=== PATIENT | male | born 1965 | race African-American/Black ===

== ENCOUNTER 2022-12-09 10:55 | Inpatient (IN) | payer OTHER ==
--- OUTSIDE RECORDS SUMMARY | 2022-12-09 10:59 | XMS REPORT | Continuity of Care Document ---
:1965 Author Organization [facility] t Address [address] [facility]. [address] [place] [address] Care Team Providers Name Role Phone Castro Deluna MD Primary Care Physician [phone] Castro Deluna MD Attending Clinician ALISTAIR NOLASCO Attending Clinician Unavailable Payers Payer Name Policy Type Policy Number Effective Date Expiration Date S ource Problems Condition Condition Condition Status Onset Resolution Last Treating Co mments Source Name Details Category Date Date Treatment Clinician Date Hypertensi Hypertensi Disease Active [facility] Hyperlipid Hyperlipid Disease Active [facility] Coronary Coronary Disease Active Meth[facility] di artery artery st disease disease Hospita involving involving l [place] coronary coronary artery of artery of [place] heart heart without without angina angina pectoris pectoris Cigar Cigar Disease Active [facility] sm[facility] sm[facility] Allergies, Adverse Reactions, Alerts This patient has no known allergies or adverse reactions. Social History Social Habit Start Date Stop Date Quantity Comments Source Gender identity [facility] History of tobacco Smokes tobacco [facility] daily [facility] Alcohol intake 2022-10-30 2022-10-30 Current drinker [facility] 00:00:00 00:00:00 of alcohol Hospital (finding) History of Social 2022-10-30 2022-10-[address] function 00:00:00 00:00:00 Hospital Tobacco Comment 2022-10-30 2022-10-30 2-3 cigars day [facility] 00:00:00 00:00:00 Hospital Tobacco use and 2022-10-30 2022-10-30 Smokeless [facility] exposure 00:00:00 00:00:00 tobacco non-user Hospital Sex Assigned At [birth year] [facility] 00:[facility]:00 [facility]:00 [facility] Smoking Status Start Date Stop Date Source Smokes tobacco daily 2022-10-30 00:00:00 [facility] Medications Ordered Filled Start Stop Current Ordering Indication Dosage Frequency Signature Comments Components Source Medication Medication Date Date Medication? Clinician (SIG) Name Name atorvastati Yes [id number] 40mg QD Take 1 [facility] (LIPITOR) 5-15 tablet (40 st 40 mg 00:00: mg total) Hospita tablet 00 by mouth l daily. metoprolol 2023- Yes [id number] 25mg QD Take 1 [facility] succinate 5-15 05-15 tablet (25 st XL 00:00: 04:59 mg total) Hospita (TOPROL-XL) 00 :00 by mouth l 25 mg 24 hr daily. tablet benzonatate 2022- Yes [id number] 200mg Q.[id number] Take 1 [facility] (TESSALON) 5-15 06-[id number] 200 MG 00:00: 04:59 3D (200 mg Hospita capsule 00 :00 total) by l mouth 3 (three) times a day as needed for cough for up to 30 days. fluticasone Yes [id number] 1{puff} Q.5D Inhale 1 [facility] propion-frederic -[address] meteroL 00:00: (two) Hospita (ADVAIR/ 00 times a l WIXELA day. INHUB) 250-50 mcg/dose DISKUS benzonatate 2022- No [id number] 200mg Q.[id number] Take 1 [facility] (TESSALON) 4-25 05-[id number] 200 MG 00:00: 00:00 3D (200 mg Hospita capsule 00 :00 total) by l mouth 3 (three) times a day as needed for cough for up to 30 days. methylPREDN 2022- No [id number] follow [facility] ISolone 10-[address] (Medrol, 00:00: 04:59 directions Ho angelic Bennett,) 4 mg 00 :00 l tablet albuterol Yes 2{puff} Q4H Inhale 2 M ethodi (PROAIR 4-[address] HFA) 90 00:00: every 4 Hospita mcg/actuati 00 (four) l on inhaler hours as needed. gabapentin Yes [id number] 300mg Q.5D Take 1 [facility] (NEURONTIN) 8-[address] 300 mg 00:00: (300 mg Hospita capsule 00 total) by l mouth 2 (two) times a day. atorvastati 2022- No [id number] 40mg QD Take 1 [facility] (LIPITOR) 10-06 tablet (40 s t 40 mg 00:00: 00:00 mg total) Hospit a tablet 00 :00 by mouth l daily. Immunizations Ordered Immunization Filled Immunization Date Status Commen ts Source Name Name FLUCELVAX QUAD PF 2020-05-[address] 00:00:00 Hospital Vital Signs Vital Name Observation Time Observation Value Comments Source Systolic blood 2022-10-30 19:40:00 164 mm[Hg] [facility] pressure Diastolic blood 2022-10-30 19:40:00 88 mm[Hg] [facility] pressure Heart rate 2022-10-30 19:40:00 73 /min [facility] Respiratory rate 2022-10-30 19:40:00 18 /min [facility] Body height 2022-10-30 19:40:00 165.1 cm [facility] Body weight 2022-10-30 19:40:00 59.784 kg [facility] BMI 2022-10-30 19:40:00 21.93 kg/m2 [facility] Oxygen saturation in 2022-10-30 19:40:00 99 /min [facility] Arterial blood by Pulse oximetry Procedures This patient has no known procedures. Plan of Care Planned Activity Planned Date Details Comments Source Future Scheduled 2022-11-23 COVID-19 VACCINE (#1) [facility] Test 15:50:42 [code = COVID-19 VACCINE (#1)] Future Scheduled 2022-11-23 Pneumococcal Vaccine: [facility] Test 15:50:42 Pediatrics (0 to 5 Years) and At-Risk Patients (6 to 64 Years) (1 - PCV) [code = Pneumococcal Vaccine: Pediatrics (0 to 5 Years) and At-Risk Patients (6 to 64 Years) (1 - PCV)] Future Scheduled 2022-11-23 Hepatitis C screening [facility] Test 15:50:42 (procedure) [code = 363669790] Future Scheduled 2022-11-23 COLONOSCOPY SCREENING [facility] Test 15:50:42 [code = COLONOSCOPY SCREENING] Future Scheduled 2022-11-23 SHINGLES VACCINES (1 Met [facility] Test 15:50:42 of 2) [code = SHINGLES VACCINES (1 of 2)] Future Scheduled 2022-11-23 INFLUENZA VACCINE Method [facility] Test 15:50:42 [code = INFLUENZA VACCINE] Encounters Start End Encounter Admission Attending Care Care Encounter Source Date/Time Date/Time Type Type Clinicians Facility Department ID 2022-11-19 2022-11-19 Orders Regi, 1.2.840.1 [id number] [facility] 00:00:00 00:00:00 Only Castro Galeana50.1.[address] 3.430.2.7 Hospit a .3.536114 l .8 2022-11-17 2022-11-17 Refill Regi, 1.2.840.1 [id number] [facility] 00:00:00 00:00:[address] 3.430.2.7 Hospit a .3.418549 l .8 2022-10-30 2022-10-30 Office Regi, 1.2.840.1 [id number] [facility] 14:30:00 15:08:08 Visit Castro Galeana50.1.[address] 3.430.2.7 Hospit a .3.077442 l .8 2022-10-30 2022-10-30 Outpatient REGI, [facility] [id number] [place] 00:00:00 00:00:00 CASTRO [address] [facility] 2021-02-21 2021-02-21 Outpatient REGICAPE [facility] [id number] [place] 00:00:00 00:00:00 ACSTRO [address] 2020-10-06 2020-10-06 Outpatient DELUNA, [facility] [id number] [place] 00:00:00 00:00:00 CASTRO [address] 2020-06-29 2020-06-29 Outpatient DOMINY, [facility] [id number] [place] 00:00:00 00:00:00 ALISTAIR [address] 2020-06-29 2020-06-29 Outpatient DELUNA, [facility] [id number] [place] 00:00:00 00:00:00 CASTRO [address] 2020-05-24 2020-05-24 Outpatient DELUNA, [facility] [id number] [place] 00:00:00 00:00:00 CASTRO [address] Results This patient has no known results.
[2022-12-09 12:02] LABS: Absolute Lymphocytes (CBC) 2.1 K/uL (0.7-4.9); Lymphocytes % 34.1 % (15.3-44.8); MCV 97.1 fL (80-100); MPV 8.8 fL (7.6-11.3); RBC Red Blood Cell Count 3.92 M/uL (4.33-5.43)
--- NOTE | 2022-12-09 12:09 | RAD REPORT ---
EXAM DESCRIPTION[facility]12/09/2022 12:02 pm CLINICAL HISTORY: COUGH COMPARISON: No comparisons TECHNIQUE: PA and lateral views of the chest. FINDINGS: The lungs are clear. No pneumothorax or effusion. The cardiomediastinal contours are unre markable. IMPRESSION: No acute cardiopulmonary process.
[2022-12-09 12:26] LABS: Troponin High Sensitivity 357.6 pg/mL (<58.9)
[2022-12-09] MEDS ORDERED: ASPIRIN 81 MG CHEWABLE TABLET ONE (12:45)
[2022-12-09] MEDS ORDERED: MORPHINE 2 MG/ML SYR IV PRN (12:51)
--- NOTE | 2022-12-09 12:52 | EDPHYS ---
Physician Documentation [facility] Name: Juancho Sanchez Age: 57 yrs Sex: Male : 1965 Arrival Date: 12/09/2022 Time: 10:55 Bed 15 Private MD: ED Physician Albert Lopez HPI: 12/09 11:28 This 57 yrs old Black Male presents to ER via Ambulatory with complaints of Breathing bs3 Difficulty. 11:28 49-year-old male history of an LA sp stent in 2017 possible hypertension/high bs3 cholesterol patient reports taking his medications but not having either of the 2 diseases presents with a cough on and off for approximately 1 month he also has loss of his voice he lost his voice a month ago and never came back he denies any fevers or chills he notes cough and congestion and feels slightly short of breath no history of asthma or COPD and no history of pulmonary embolism no leg swelling no recent travel or immobilization he does note that sometimes he coughs and he feels like it gets stuck in his throat. Historical: - Allergies: 11:02 No Known Allergies; vg1 - Home Meds: 11:02 Aspirin Oral [Active]; atorvastatin oral [Active]; vg1 - PMHx: 11:02 Hypertensive disorder; Myocardial infarction; vg1 - Immunization history:: Client reports having NOT received the Covid vaccine. - Social history:: Smoking status: Patient/guardian denies using tobacco, Stopped _ months ago 3. ROS: 11:28 Constitutional: Negative for fever, chills bs3 11:28 All other systems are negative. Exam: 11:28 Constitutional: This is a well developed, well nourished patient who is awake, alert, bs3 and in no acute distress. Head/Face: Normocephalic, atraumatic. Eyes: Pupils equal round and reactive to light, extra-ocular motions intact. Lids and lashes normal. ENT: mmm, no posterior phyarngeal erythema Neck: Trachea midline, no thyromegaly, no neck stiffness Chest/axilla: Normal chest wall appearance and motion. Nontender with no deformity. No lesions are appreciated. Cardiovascular: Regular rate and rhythm with a normal S1 and S2. symmetric pulses in upper extremities Respiratory: No tachypnea has breath sounds are have mild rhonchi bilaterally no respiratory distress Abdomen/GI: Soft, non-tender, no rebound or guarding Skin: Warm, dry with normal turgor. Normal color with no rashes, no lesions, and no evidence of cellulitis. MS/ Extremity: Pulses equal, no cyanosis. Neurovascular intact. Full, normal range of motion. Neuro: Awake and alert, GCS 15, oriented to person, place, time, and situation. Cranial nerves II-XII grossly intact. Motor strength 5/5 in all extremities. Sensory grossly intact. Psych: Awake, alert, with orientation to person, place and time. Behavior, mood, and affect are within normal limits. Vital Signs: 10:59 BP 162 / 89; Pulse 85; Resp 24; Temp 97.9; Pulse Ox 100% on R/A; Weight 62.6 kg; Height vg1 5 ft. 5 in. ; 12:40 BP 155 / 91; Pulse 87; Resp 17 S; Pulse Ox 99% on R/A; kc6 13:45 BP 148 / 88; Pulse 66; Resp 18; Pulse Ox 100% on R/A; kr3 10:59 Body Mass Index 22.97 (62.60 kg, 165.1 cm) vg1 MDM: 11:05 Patient medically screened. bs3 11:28 Differential diagnosis: Anemia Anxiety Reaction asthma, Bronchitis CHF exacerbation, bs3 Chronic Obstructive Pulmonary Disease pneumonia, reactive airway disease. Data reviewed: vital signs, nurses notes. 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 12:40 ED course: Discussed with Dr. Esposito who agreed with heparin he will see the patient bs3 will admit to the hospitalist for NSTEMI possible new heart failure. 12:50 ED course: Discussed with Dr. Killian for admission. bs3 12/09 11:27 Order name: Basic Metabolic Panel; Complete Time: 12:29 bs3 12/09 11:27 Order name: CBC with Diff; Complete Time: 12:12 bs3 12/09 11:27 Order name: NT PRO-BNP; Complete Time: 12:29 bs3 12/09 11:27 Order name: Troponin HS; Complete Time: 12:29 3 12/09 12:52 Order name: PT-INR bs3 12/09 12:52 Order name: Ptt, Activated [facility] 12/09 13:01 Order name: Troponin High Sensitivity [facility] 12/09 13:02 Order name: Troponin High Sensitivity EDMS 12/09 13:02 Order name: Troponin High Sensitivity EDMS 12/09 11:27 Order name: XRAY Chest Pa And Lat (2 Views); Complete Time: 12:12 bs3 12/09 13:02 Order name: Echo with Doppler EDMS 12/09 11:27 Order name: EKG; Complete Time: 11:28 bs3 12/09 13:02 Order name: Heart Healthy EDMS 12/09 11:27 Order name: Cardiac monitoring; Complete Time: 11:28 bs3 12/09 11:27 Order name: EKG - Nurse/Tech; Complete Time: 12:15 bs3 12/09 11:27 Order name: IV Saline Lock; Complete Time: 11:47 bs3 12/09 11:27 Order name: Labs collected and sent; Complete Time: 11:47 bs3 12/09 11:27 Order name: O2 Per Protocol; Complete Time: 11:28 bs3 12/09 11:27 Order name: O2 Sat Monitoring; Complete Time: 11:28 bs3 Administered Medications: 12:40 Drug: Aspirin PO Chewable Tablet 324 mg Route: PO; nj1 16:16 Follow up: Response: No adverse reaction kr3 13:55 Drug: Heparin ([place] Drip) - (D5W IV 500 ml, [place] [address] units) 12 units/kg/hr kr3 {Co-Signature: kc6 (Mayra Kaiser RN).} Route: IV; Rate: calculated rate; Site: right antecubital; 16:16 Follow up: IV Status: Infusion continued kr3 14:08 Drug: Heparin (LA-Bolus No thrombolytic) - HEParin IVP 60 units/kg {Co-Signature: kc6 kr3 (Mayra Kaiser RN).} Route: IVP; Site: right antecubital; 16:16 Follow up: Response: No adverse reaction kr3 Disposition Summary: 12/09/22 12:51 Hospitalization Ordered Hospitalization Status: Inpatient Admission bs3 Provider: Tian Singleton bs3 Location: Telemetry/MedSurg (Inpatient) bs3 Condition: Fair bs3 Problem: new bs3 Symptoms: are unchanged bs3 Bed/Room Type: Standard bs3 Room Assignment: 429(12/09/22 14:26) eb Diagnosis - Subsequent non-ST elevation (NSTEMI) myocardial infarction bs3 - Dyspnea, unspecified bs3 Forms: - Medication Reconciliation Form bs3 - SBAR form bs3 Signatures: Dispatcher [employer]eta Rodney Victoria, RN RN vg1 Keisha Golden RN RN kr3 Albert Lopez MD MD bs3 Billie Hassan RN RN nj1 Mayra Kaiser RN kc6 Corrections: (The following items were deleted from the chart) 12:35 11:28 49-year-old male history of an LA when he was approximately 17 possible bs3 hypertension/high cholesterol patient reports taking his medications but not having either of the 2 diseases presents with a cough on and off for approximately 1 month he also has loss of his voice he lost his voice a month ago and never came back he denies any fevers or chills he notes cough and congestion and feels slightly short of breath no history of asthma or COPD and no history of pulmonary embolism no leg swelling no recent travel or immobilization he does note that sometimes he coughs and he feels like it gets stuck in his throat. bs3 14:26 12:51 bs3 eb
--- NOTE | 2022-12-09 12:52 | ER ---
Nurse's Notes [facility] Name: Juancho Sanchez Age: 57 yrs Sex: Male : 1965 Arrival Date: 12/09/2022 Time: 10:55 Bed 15 Private MD: Diagnosis: Subsequent non-ST elevation (NSTEMI) myocardial infarction;Dyspnea, unspecified Presentation: 12/09 10:59 Chief complaint: Patient states: had pneumonia last month, states difficulty vg1 breathing/SOB with CP and cough and loss of voice. Coronavirus screen: Vaccine status: Patient reports being unvaccinated. Client denies travel out of the [place] in the last 14 days. Ebola Screen: Patient negative for fever greater than or equal to 101.5 degrees Fahrenheit, and additional compatible Ebola Virus Disease symptoms Patient denies exposure to infectious person. Patient denies travel to an Ebola-affected area in the 21 days before illness onset. Initial Sepsis Screen: Does the patient meet any 2 criteria? RR > 20 per min. Does the patient have a suspected source of infection? No. Patient's initial sepsis screen is negative. Risk Assessment: Do you want to hurt yourself or someone else? Patient reports no desire to harm self or others. Onset of symptoms was November 08, 2022. 10:59 Method Of Arrival: Ambulatory vg1 10:59 Acuity: ALINE 3 vg1 Triage Assessment: 11:02 General: Appears in no apparent distress. uncomfortable, Behavior is cooperative. Pain: vg1 Complains of pain in chest. Respiratory: Reports shortness of breath at rest on exertion cough that is Airway is patent Respiratory effort is even, labored, Respiratory pattern is tachypnea Onset: The symptoms/episode began/occurred x 1 month, the patient has moderate shortness of breath. Historical: - Allergies: 11:02 No Known Allergies; vg1 - Home Meds: 11:02 Aspirin Oral [Active]; atorvastatin oral [Active]; vg1 - PMHx: 11:02 Hypertensive disorder; Myocardial infarction; vg1 - Immunization history:: Client reports having NOT received the Covid vaccine. - Social history:: Smoking status: Patient/guardian denies using tobacco, Stopped _ months ago 3. Screenin:13 [facility] ED Fall Risk Assessment (Adult) History of falling in the last 3 months, kr3 including since admission No falls in past 3 months (0 pts) Confusion or Disorientation No (0 pts) Intoxicated or Sedated No (0 pts) Impaired Gait No (0 pts) Mobility Assist Device Used No (0 pt) Altered Elimination No (0 pt) Score/Fall Risk Level 0 - 2 = Low Risk Oriented to surroundings, Maintained a safe environment, Educated pt \T\ family on fall prevention, incl call for assistance when getting out of bed, Provided non-skid footwear. Abuse screen: Denies threats or abuse. Nutritional screening: No deficits noted. Tuberculosis screening: No symptoms or risk factors identified. Assessment: 12:40 Reassessment: Patient appears in no apparent distress at this time. Patient and/or kr3 family updated on plan of care and expected duration. Pain level reassessed. Patient is alert, oriented x 3, equal unlabored respirations, skin warm/dry/pink. see triage assessment. 14:13 Reassessment: Patient and/or family updated on plan of care and expected duration. Pain kr3 level reassessed. Patient is alert, oriented x 3, equal unlabored respirations, skin warm/dry/pink. Vital Signs: 10:59 BP 162 / 89; Pulse 85; Resp 24; Temp 97.9; Pulse Ox 100% on R/A; Weight 62.6 kg; Height vg1 5 ft. 5 in. ; 12:40 BP 155 / 91; Pulse 87; Resp 17 S; Pulse Ox 99% on R/A; kc6 13:45 BP 148 / 88; Pulse 66; Resp 18; Pulse Ox 100% on R/A; kr3 10:59 Body Mass Index 22.97 (62.60 kg, 165.1 cm) vg1 ED Course: 10:56 Patient arrived in ED. mr 11:02 Triage completed. vg1 11:02 Arm band placed on. vg1 11:05 Albert Lopez MD is Attending Physician. bs3 11:10 Bed in low position. Call light in reach. Side rails up X 1. kr3 11:34 Keisha Golden, ANIKA is Primary Nurse. kr3 11:47 Inserted saline lock: 22 gauge in right antecubital area, using aseptic technique. kr3 Blood collected. 11:47 Missed attempt(s): 20 gauge in right antecubital area. kr3 12:03 XRAY Chest Pa And Lat (2 Views) In Process Unspecified. EDMS 12:50 Tian Singleton MD is Hospitalizing Provider. bs3 13:01 Inserted saline lock: 20 gauge in left antecubital area, using aseptic technique. kr3 16:14 No provider procedures requiring assistance completed. Patient admitted, IV remains in kr3 place. Administered Medications: 12:40 Drug: Aspirin PO Chewable Tablet 324 mg Route: PO; nj1 16:16 Follow up: Response: No adverse reaction kr3 13:55 Drug: Heparin ([place] Drip) - (D5W IV 500 ml, [place] [address] units) 12 units/kg/hr kr3 {Co-Signature: claudio (Mayra Kaiser RN).} Route: IV; Rate: calculated rate; Site: right antecubital; 16:16 Follow up: IV Status: Infusion continued kr3 14:08 Drug: Heparin ([place]-Bolus No thrombolytic) - HEParin IVP 60 units/kg {Co-Signature: claudio sandoval3 (Mayra Kaiser RN).} Route: IVP; Site: right antecubital; 16:16 Follow up: Response: No adverse reaction kr3 Medication: 16:15 VIS not applicable for this client. kr3 Outcome: 12:51 Decision to Hospitalize by Provider. bs3 16:14 Admitted to Med/surg accompanied by tech, via wheelchair, room 429, with chart, Report kr3 called to ANIKA Guajardo 16:14 Condition: stable 16:14 Instructed on the need for admit. 16:16 Patient left the ED. kr3 Signatures: Dispatcher [facility] Donovan Ayla Radha Langston, RN RN vg1 Keisha Golden RN RN kr3 Mayra Kaiser, RN RN kc6 Albert Lopez MD MD bs3 Billie Hassan RN RN nj1 Mayra Kaiser RN6 Corrections: (The following items were deleted from the chart) 14:14 12:40 Reassessment: Patient appears in no apparent distress at this time. Patient kr3 and/or family updated on plan of care and expected duration. Pain level reassessed. Patient is alert, oriented x 3, equal unlabored respirations, skin warm/dry/pink. kc6
[2022-12-09] MEDS ORDERED: ENOXAPARIN 60 MG/0.6 ML SQ SCH (12:57)
[2022-12-09] MEDS: ARFORMOTEROL TARTRATE 15 MCG/2 ML VIAL.NEB NEB SCH ×2 (12:58→20:10)
--- NOTE | 2022-12-09 13:00 | P.HP ---
Certification for Inpatient Patient admitted to: Observation With expected LOS: <2 Midnights Patient will require the following post-hospital care: None Practitioner: I am a practitioner with admitting privileges, knowledge of patient current condition, hospital course, and medical plan of care. Services: Services provided to patient in accordance with Admission requirements found in Title 42 Section 412.3 of the Code of Federal Regulations Patient History Date of Service: 12/09/22 Reason for admission: SOB and cough History of Present Illness: Patient is 57 years of age he has been sick for about 2 weeks complaining of cough congestion dysphonia and worsening shortness of breath ended up here in the hospital was seen in the emergency room treated with antibiotic steroids no relief patient quit smoking about 3 weeks ago denies being a heavy smoker history of coronary artery disease Allergies No Known Allergies Allergy (Unverified 12/09/22 16:31) Home Medications: Atorvastatin Calcium [Lipitor] 40 mg PO 12/09/22 Metoprolol Succinate 25 mg PO 12/09/22 - Past Medical/Surgical History -: HTN -: CAD -: Stent 2016 - Social History Smoking Status: Former smoker Review of Systems 10-point ROS is otherwise unremarkable Physical Examination - Vital Signs Temperature: 98 F Blood Pressure: 162/89 Pulse: 85 Respirations: 24 Pulse Ox (%): 90 - Physical Exam General: Alert, In no apparent distress, Oriented x3 HEENT: Atraumatic, Normocephalic Neck: Supple Respiratory: Clear to auscultation bilaterally, Normal air movement Cardiovascular: No edema, Normal pulses, Regular rate/rhythm Capillary refill: >2 Seconds Gastrointestinal: Hypoactive Musculoskeletal: No clubbing, No swelling, No contractures - Studies Laboratory Data (last 24 hrs) 12/09/22 11:40: WBC 6.20, Hgb 12.7 L, Hct 38.0 L, Plt Count 237 12/09/22 11:40: Sodium 137, Potassium 4.0, BUN 12, Creatinine 0.98, Glucose 94 Assessment and Plan - Problems (Diagnosis) (1) Non-STEMI (non-ST elevated myocardial infarction) Current Visit: Yes Status: Acute Plan: Patient is 57 years of age has been having problems for the past 2 weeks admitted with chronic cough shortness of breath dysphonia failed outpatient therapy with antibiotics and steroid history of coronary artery disease he had a stent placed in 2017 quit smoking 3 months ago found to have elevated troponin and an abnormal EKG as a reason for admission patient will be admitted treated with IV heparin cardiology consult BNP elevated low-dose diuretics blood pressure control bronchodilators steroids chest x-ray is normal patient's white count is normal start also on Zithromax patient is dysphonic present at the bedside Discharge Plan: Home Plan to discharge in: 24 Hours - Advance Directives Does patient have a Living Will: No Does patient have a Durable POA for Healthcare: No
[2022-12-09 13:17] LABS: Protime INR 1.14
[2022-12-09] MEDS ORDERED: HEPARIN/D5W 25,000 UNIT/500 ML BAG IV ONE (13:25)
[2022-12-09] MEDS ORDERED: HEPARIN 5000 UNIT/ML 1 ML VIAL ONE (13:25)
--- NOTE | 2022-12-09 14:50 | CON ---
Date of Consultation: 12/09/2022 Reason For Consultation: Elevated troponin. History Of Present Illness: This is a 57-year-old male with history of coronary artery disease, stat us post heart attack in 2006, status post PCI, has history of hypertension, he has had that 2 weeks a go and was diagnosed with pneumonia, but he is not getting any better. His voice is not back. He de nies having any active chest pain, but he does have shortness of breath on exertion and movement. On evaluation, there was no evidence of pneumonia in the emergency room, but troponin was elevated. Th e patient was admitted for possible non-STEMI. At this moment, he does not have any active chest nawaf n. Past Medical History: Hypertension and coronary artery disease. Medications: Refer to reconciliation sheet for detailed list. Allergies: NONE. Past Surgical History: Cardiac stent placement in 2017. Family History: No premature coronary artery disease or cancer. Social History: He does not smoke currently, but he is an ex-smoker. Does not drink or use any drug s. Review of Systems: All systems reviewed and they were negative except what mentioned in HPI. Physical Examination: Vital Signs: Reviewed. Head and Neck: Pupils are equal, reactive to light. Intact eye movements. No JVD. No cervical lym phadenopathy. Neck is supple. Thyroid is not enlarged. Lungs: Clear to auscultation bilaterally. No rhonchi, wheezing, or crackles. No accessory muscle u se. Heart: Regular rate and rhythm. No extra sounds. Abdomen: Soft, nontender. Bowel sounds positive. No organomegaly. No masses or hernia. No rigidi ty or rebound. Extremities: No edema, clubbing, or cyanosis. Intact pulses. Skin: No rash. Neurologic: Alert, awake, oriented x3. No acute focal deficits appreciated. Investigations: Troponin peaked at 357, BUN 12, creatinine 0.98, and his hemoglobin is 12.7. Assessment And Recommendations: 1.Elevated troponin. No active chest pain, but he has shortness of breath on exertion that is progr essing. He is thinking that it is due to pneumonia, but there is no pneumonia on exam or chest x-ray . This definitely could be congestive heart failure related and I recommend coronary angiogram in th e interim, start him on heparin drip and baby aspirin, and plan to keep n.p.o. past midnight for laquita nary angiogram tomorrow. 2.Hypertension. Blood pressure is elevated. He was counseled that if his blood pressure is a silen t killer, then he should be treated. At this point, he can be started on lisinopril and beta-pillo if blood pressure tolerates. I will monitor the patient with you. 3.Elevated NT-proBNP, probably congestive heart failure. Obtain echo tomorrow and we will do sánchez ry angiogram as above. /PJL Voice ID: [id number] Report ID: [id number]
[2022-12-09] MEDS: FUROSEMIDE 20 MG/ 2ML VIAL IV SCH ×2 (17:00→17:18)
[2022-12-09 17:04] VITALS: BMI 22.9
[2022-12-09] MEDS: predniSONE 20 MG TAB PO SCH ×2 (17:17→19:37)
[2022-12-09] MEDS: AZITHROMYCIN 250 MG TAB PO SCH (17:30)
[2022-12-09 19:38] LABS: Protime INR 1.17
[2022-12-09] MEDS ORDERED: HEPARIN/D5W 25,000 UNIT/500 ML BAG IV SCH (20:00)
[2022-12-09] MEDS ORDERED: ONDANSETRON 4 MG/2 ML VIAL IV PRN (21:15)
[2022-12-10] MEDS: FUROSEMIDE 20 MG/ 2ML VIAL IV SCH ×2 (09:00→19:12)
[2022-12-10] MEDS: ARFORMOTEROL TARTRATE 15 MCG/2 ML VIAL.NEB NEB SCH ×2 (09:15→20:20)
[2022-12-10] MEDS: AZITHROMYCIN 250 MG TAB PO SCH (09:21)
[2022-12-10] MEDS: predniSONE 20 MG TAB PO SCH ×2 (09:21→20:35)
[2022-12-10] MEDS: ASPIRIN EC 81 MG TAB PO SCH (09:21)
--- NOTE | 2022-12-10 10:16 | EKG ---
Test Date: 2022-12-09 Test Time: 12:10:43 Boiler Reliner: DEBRA MEASUREMENT RESULTS: Intervals: Rate: 71 NC: 142 QRSD: 82 QT: 398 QTc: 432 [place]: P: 77 NC: 142 QRS: 76 T: -74 INTERPRETIVE STATEMENTS: Sinus rhythm with premature supraventricular complexes T wave abnormality, consider inferolateral ischemia Abnormal ECG No previous ECG available for comparison Electronically Signed On 12-10-22 10:13:44 CDT by Darryl Gilmore
[2022-12-10] MEDS ORDERED: NA CHLORIDE 0.9% 500 ML ONE (14:30)
[2022-12-10] MEDS ORDERED: HEPA 1000U/500MLS 2,000 UNIT/1,000 ML BAG IV ONE (14:40)
[2022-12-10] MEDS ORDERED: LIDOCAINE 1% 20 ML MDV ONE (14:40)
[2022-12-10] MEDS ORDERED: MIDAZOLAM HCL 2 MG/2 ML INJ ONE (14:41)
[2022-12-10] MEDS ORDERED: HEPARIN 10,000 UNIT/10 ML VIAL IV ONE (14:41)
[2022-12-10] MEDS ORDERED: ATROPINE SULF 1 MG/10 ML SYR IV ONE (14:41)
[2022-12-10] MEDS ORDERED: FENTANYL CITR 100 MCG/2 ML ONE (14:41)
[2022-12-10] MEDS ORDERED: TICAGRELOR 90 MG TABLET PO ONE (14:42)
[2022-12-10] MEDS ORDERED: ASPIRIN 325 MG TAB ONE (14:42)
[2022-12-10] MEDS ORDERED: CLOPIDOGREL 75 MG TABLET ONE (14:42)
--- NOTE | 2022-12-10 15:19 | P.PN ---
Subjective Date of Service: 12/10/22 Chief Complaint: SOB and cough Patient denies any complaint today. He denies any chest pain. He feels the chest pain he experienced is related to his coughing spells. He states his coughing is better. He has lost his voice. No change in his voice from yesterday. Physical Examination - Vital Signs Temperature: 97.1 F Blood Pressure: 128/72 Pulse: 72 Respirations: 17 Pulse Ox (%): 98 - Physical Exam General: Alert, In no apparent distress, Oriented x3 HEENT: Other (Dysphonic) Neck: JVD not distended Respiratory: Clear to auscultation bilaterally, Normal air movement Cardiovascular: No edema, Regular rate/rhythm, Normal S1 S2 Gastrointestinal: Normal bowel sounds, Soft and benign, Non-distended, No tenderness Musculoskeletal: No swelling, No tenderness Integumentary: No rashes, No cyanosis Neurological: Normal speech, Normal strength at 5/5 x4 extr, Cranial nerves 3-12 intact Assessment And Plan - Current Problems (Diagnosis) (1) Tracheobronchitis Current Visit: Yes Status: Acute (2) Non-STEMI (non-ST elevated myocardial infarction) Current Visit: Yes Status: Acute (3) Coronary artery disease Current Visit: Yes Status: Acute (4) Essential hypertension Current Visit: Yes Status: Acute - Plan Patient with clear chest x-ray but elevated BNP. Congestive heart failure is not ruled out especially given elevated troponin/NST CY. Continue Zithromax, bronchodilator-Brovana. Oral prednisone. Follow sputum culture. Cardiology input appreciated. Patient scheduled for cardiac cath today. Echocardiogram ordered to evaluate systolic/diastolic function. Continue IV Lasix. Blood pressure stable. Hold metoprolol for now.
[2022-12-10] MEDS ORDERED: REGADENOSON 0.4 MG/5 ML SYR IV ONE ×2 (16:48→17:08)
[2022-12-10] MEDS ORDERED: HEPA 1000U/500MLS 1,000 UNIT/500 ML BAG IV ONE (17:03)
[2022-12-11 03:58] LABS: Absolute Lymphocytes (CBC) 1.3 K/uL (0.7-4.9); Hematocrit 36.1 % (39.6-49.0); Lymphocytes % 13.7 % (15.3-44.8); MCV 96.7 fL (80-100); MPV 9.3 fL (7.6-11.3); RBC Red Blood Cell Count 3.74 M/uL (4.33-5.43)
[2022-12-11 04:20] LABS: Magnesium 2.1 mg/dL (1.6-2.4); Potassium 4.1 mEq/L (3.5-5.1)
--- NOTE | 2022-12-11 07:20 | P.PN ---
Date of Service: 12/11/22 Subjective: feeling better Breathing is much better today; not nearly as much dyspnea on minor exertion in room cough improved, +afebrile voice slightly improved ROS: 10 point ROS as noted above, otherwise negative Physical Exam: GEN: Alert, oriented, hoarse/weakl voice HEENT: Normal conjunctiva, sclera anicteric CV: Regular rate and rhythm, no edema Pulm: Nonlabored respirations on room air, mild wheeze ABD: Soft, nontender, nondistended Integumentary: No rashes Neuro: normal affect, no focal deficit vitals reviewed Problem List: Tracheobronchitis Non-STEMI Coronary artery disease Hypertension Patient with clear chest x-ray but elevated BNP. Congestive heart failure is not ruled out especially given elevated troponin/NSTEMI. cath on 12/10 - no intervention warranted. Cardiology consulted echo to be done 12/11 symptoms/ CASTORENA, cough improving on diuretics and copd treatment Continue Zithromax, bronchodilator-Brovana; prednisone Follow sputum culture. Continue IV Lasix. Blood pressure stable. Hold metoprolol for now. VTE: hold heparin Code: Full Dispo: Home, ~24 hours
[2022-12-11] MEDS: predniSONE 20 MG TAB PO SCH ×2 (08:07→21:21)
[2022-12-11] MEDS: FUROSEMIDE 20 MG/ 2ML VIAL IV SCH ×2 (08:07→16:46)
[2022-12-11] MEDS: AZITHROMYCIN 250 MG TAB PO SCH (08:07)
[2022-12-11] MEDS: ASPIRIN EC 81 MG TAB PO SCH (08:07)
[2022-12-11] MEDS: ARFORMOTEROL TARTRATE 15 MCG/2 ML VIAL.NEB NEB SCH ×2 (08:15→20:05)
[2022-12-11 12:08] VITALS: O2SAT 99
--- NOTE | 2022-12-12 07:32 | ECHO ---
HEIGHT: 5 ft 5 in WEIGHT: 138 lb 0 oz DATE OF STUDY: 12/11/[address]: Tian Singleton MD 2-DIMENSIONAL: YES M.MODE: YES DOPPLER: YES COLOR FLOW: YES TDS: PORTABLE: YES DEFINITY: BUBBLE STUDY: DIAGNOSIS: NON ST ELEVATION MYOCARDIAL INFARCTION CARDIAC HISTORY: CATHERIZATION: YES SURGERY: NO PROSTHETIC VALVE: NO PACEMAKER: NO MEASUREMENTS (cm) DIASTOLIC (NORMALS) SYSTOLIC (NORMALS) IVSd 1.0 (0.6-1.2) LA Diam 2.0 (1.9-4.0) LVEF 57% LVIDd 4.8 (3.5-5.7) LVIDs 3.4 (2.0-3.5) %FS 30% LVPWd 1.1 (0.6-1.2) Ao Diam 2.5 (2.0-3.7) 2 DIMENSIONAL ASSESSMENT: RIGHT ATRIUM: NORMAL LEFT ATRIUM: NORMAL RIGHT VENTRICLE: NORMAL LEFT VENTRICLE: NORMAL TRICUSPID VALVE: NORMAL MITRAL VALVE: NORMAL PULMONIC VALVE: NORMAL AORTIC VALVE: NORMAL PERICARDIAL EFFUSION: NONE AORTIC ROOT: NORMAL LEFT VENTRICULAR WALL MOTION: NORMAL DOPPLER/COLOR FLOW: MILD AORTIC REGURGITATION COMMENTS: 1. NORMAL LEFT VENTRICULAR SIZE AND FUNCTION 2. MILD AORTIC REGURGITATION 3. NO WALL MOTION ABNORMALITY TECHNOLOGIST: ROBERT VAZQUEZ
[2022-12-12] MEDS: ARFORMOTEROL TARTRATE 15 MCG/2 ML VIAL.NEB NEB SCH (08:00)
--- NOTE | 2022-12-12 08:20 | P.DS ---
Admission Date: 12/10/22 Discharge Date: 12/12/22 Reason for Admission: SOB and cough Consultations: Cardiology - Dr. Gilmore / Dr. Jj Brief History of Present Illness: Patient is 57 years of age he has been sick for about 2 weeks complaining of cough congestion dysphonia and worsening shortness of breath ended up here in the hospital was seen in the emergency room treated with antibiotic steroids no relief. patient quit smoking about 3 weeks ago denies being a heavy smoker history of coronary artery disease Hospital Course: Problem List: Tracheobronchitis Non-STEMI Coronary artery disease Hypertension Patient presented with cough, dysphonia, and worsening shortness of breath. Troponins were elevated x5. Chest xray was normal. Cardiology was consulted for NSTEMI. A heart catheterization was performed and no significant stenosis was noted, so no further intervention was deemed necessary at this time. Echocardiogram was normal (EF:57% and trace regurgitation). Patient was treated for acute COPD exacerbation/bronchitis with zithromax 500mg x3days, bronchodilators, prednisone, and had some relief of his symptoms. He did briefly receive some lasix. Patient was noted to be borderline hypertensive. Follow up with PCP and if still remaining borderline hypertensive, consider addition of lisinopearl New prescriptions: Prednisone 20mg x2 daily for 4 days Continue home medication: atorvostatin, scheduled inhaler, albuterol as needed, and metoprolol Follow up: PCP 3-5 days Cardiology within 1-2 weeks Pulmonology - Dr. Singleton within 1-2 weeks Physical Exam: GEN: Alert, oriented, hoarse/weak voice HEENT: Normal conjunctiva, sclera anicteric CV: Regular rate and rhythm, no edema Pulm: Nonlabored respirations on room air, mild wheeze ABD: Soft, nontender, nondistended Integumentary: No rashes Neuro: normal affect, no focal deficit Vital Signs/Physical Exam: Temp Pulse Resp BP Pulse Ox 97.9 F 57 18 145/71 H 96 12/12/22 04:00 12/12/22 04:00 12/12/22 04:00 12/12/22 04:00 12/12/22 04:00 Laboratory Data at Discharge: WBC 9.50 thou/uL (4.3-10.9) 12/11/22 03:32 Hgb 12.3 g/dL (13.6-17.9) L 12/11/22 03:32 Hct 36.1 % (39.6-49.0) L 12/11/22 03:32 Plt Count 227 thou/uL (152-406) 12/11/22 03:32 PT 12.9 SECONDS (9.5-12.5) H 12/09/22 19:22 INR 1.17 12/09/22 19:22 APTT 27.7 SECONDS (24.3-36.9) 12/11/22 03:32 Sodium 136 mEq/L (136-145) 12/11/22 03:32 Potassium 4.1 mEq/L (3.5-5.1) 12/11/22 03:32 BUN 19 mg/dL (7-18) H 12/11/22 03:32 Creatinine 1.16 mg/dL (0.70-1.30) 12/11/22 03:32 Glucose 125 mg/dL (74-106) H 12/11/22 03:32 Magnesium 2.1 mg/dL (1.6-2.4) 12/11/22 03:32 Triglycerides 57 mg/dL (<150) 12/10/22 03:27 Cholesterol 182 mg/dL (<200) 12/10/22 03:27 HDL Cholesterol 52 mg/dL (40-60) 12/10/22 03:27 Cholesterol/HDL Ratio 3.50 12/10/22 03:27 Home Medications: Atorvastatin Calcium [Lipitor] 40 mg PO 12/09/22 Metoprolol Succinate 25 mg PO 12/09/22 predniSONE [Prednisone*] 20 mg PO BID 4 Days #8 tab 12/12/22 New Medications: predniSONE [Prednisone*] 20 mg PO BID 4 Days #8 tab Physician Discharge Instructions: Patient presented with cough, dysphonia, and worsening shortness of breath. Troponins were elevated x5. Chest xray was normal. Cardiology was consulted for NSTEMI. A heart catheterization was performed and no significant stenosis was noted, so no further intervention was deemed necessary at this time. Echocardiogram was normal (EF:57% and trace regurgitation). Patient was treated for acute COPD exacerbation/bronchitis with zithromax 500mg x3days, bronchodilators, prednisone, and had some relief of his symptoms. He did briefly receive some lasix. Patient was noted to be borderline hypertensive. Follow up with PCP and if still remaining borderline hypertensive, consider addition of lisinopearl New prescriptions: Prednisone 20mg x2 daily for 4 days Continue home medication: atorvostatin, scheduled inhaler, albuterol as needed, and metoprolol Follow up: PCP 3-5 days Cardiology within 1-2 weeks Pulmonology - Dr. Singleton within 1-2 weeks Followup: NONE,NONE [Primary Care Provider] - Time spent managing pt's care (in minutes): 45
[2022-12-12] MEDS: ASPIRIN EC 81 MG TAB PO SCH (09:14)
[2022-12-12] MEDS: FUROSEMIDE 20 MG/ 2ML VIAL IV SCH ×2 (09:14→16:09)
[2022-12-12] MEDS: AZITHROMYCIN 250 MG TAB PO SCH (09:14)
[2022-12-12] MEDS: predniSONE 20 MG TAB PO SCH (09:19)
[2022-12-12 15:55] VITALS: BP 137/70; TEMP 97.5
--- NOTE | 2022-12-19 15:50 | OP ---
Date of Procedure: 12/10/2022 Surgeon: BRIDGET GUY Procedures Performed: 1.Selective coronary angiogram. 2.Left heart catheterization. 3.FFR of mid LAD stenosis, which was not significant at 0.88. Indication For The Procedure: Non-ST elevation myocardial infarction. Access: Right femoral artery 6-Tanzanian closed with StarClose. Complications: None. Bleeding: Less than 20 mL. Description Of Procedure: After risks, benefits, alternatives were explained, the patient agreed to procedure and signed informed consent. The patient was brought into the cardiac catheterization [facility], prepped and draped in the usual sterile fashion. Then, I accessed right femoral artery using micropuncture kit, ultrasound guidance, fluoroscopy, and placed 6-Tanzanian [place] sheath, took a 6-F rench JL4 catheter into the aortic root over a J-wire, engaged left main, took standard views and the n exchanged for a 6-Tanzanian JR4 catheter and engaged the RCA, took standard views and then the cathete r was pushed over the wire into the LV, measured the LVEDP, pullback did not record any gradient and then gave systemic heparin to assure ACT level above 250 throughout the rest part of the procedure, a nd then I took a 6-Tanzanian XB left 3.5 guide into the aortic root, engaged the left main and took FFR pressure wire into the aortic root, equalized pressures and then advanced the wire into the LAD passi ng the area of the stenosis and did FFR using Lexiscan. FFR was 0.88. Then, pulled the wire back an d there was no drift. Then, final angiogram was satisfactory. Then, I removed the wire, then the ca theter and the sheath was removed, and placed StarClose for closure with good hemostasis. Findings: 1.Left main; large and normal. 2.LAD; proximal segment is normal. Mid segment 60% long lesion with negative FFR of 0.88. Then, th e diagonal 2 branch has a stent that is occluded and the rest of the LAD appears normal. 3.Left circumflex; proximal segment is normal. OM branch has mid 40% stenosis and the left circumfl ex also in the body of it supplies the inferior wall has about 40% stenosis. Left circumflex is very large and dominant. 4.RCA; very small and nondominant with mid 70% stenosis, but it is very small vessel. Conclusion: Moderate coronary artery disease with the exception of the RCA, but it is nondominant ve ssel and small. Recommendation: Medical management. SR/MODL Voice ID: [id number] Report ID: [id number]
== END 2022-12-12 17:01 | disposition home or self-care (01) | DRG 281 ==
LOC: ER 10:55 → ERHOLD 12:51 → 4TH 15:01 → OBSVTOIN 12-10 18:03
PROVIDERS: ADMIT Internal Medicine Sleep Medicine; ATTEND Hospitalist
PROC: 4A023N7 Measurement of Cardiac Sampling and Pressure, Left Heart, Percutaneous Approach (ICD-10-PCS; principal; 2022-12-10)
PROC: B2111ZZ Fluoroscopy of Multiple Coronary Arteries using Low Osmolar Contrast (ICD-10-PCS; 2022-12-10)
DX: I21.4 Non-ST elevation (NSTEMI) myocardial infarction (principal); J44.0 Chronic obstructive pulmonary disease with (acute) lower respiratory infection; J44.1 Chronic obstructive pulmonary disease with (acute) exacerbation; I25.119 Atherosclerotic heart disease of native coronary artery with unspecified angina pectoris; I25.2 Old myocardial infarction; I10 Essential (primary) hypertension; Z87.891 Personal history of nicotine dependence; I25.10 Atherosclerotic heart disease of native coronary artery without angina pectoris; Z95.5 Presence of coronary angioplasty implant and graft; J20.9 Acute bronchitis, unspecified
CPT/HCPCS: 36415; 71046; 80048; 80061; 83735; 83880; 84484; 85025; 85347; 85610; 85730; 87070; 87205; 93005; 93306; 93458; 93571; 94640; 96365; 96366; 99285; C1769; C1893; G0378; J0461; J1644; J1940; J2001; J2250; J2405; J2785; J3010; J7040; J7512; J7605; Q9967

== ENCOUNTER 2022-12-21 20:36 | Inpatient (IN) | payer OTHER ==
--- OUTSIDE RECORDS SUMMARY | 2022-12-21 20:39 | XMS REPORT | Continuity of Care Document ---
:1965 Author Organization [facility] t Address [address] [facility] [address] [place] [address] Care Team Providers Name Role Phone Castro Deluna MD Primary Care Physician [phone] Castro Deluna MD Attending Clinician ALISTAIR [...] st disease disease Hospita involving involving l [place] coronary coronary artery of artery of [place] heart heart without without angina angina pectoris pectoris Cigar Cigar Disease Active [facility] smoker smoker [facility] l Allergies, Adverse Reactions, Alerts This patient has no known allergies or adverse reactions. Social History Social Habit Start Date Stop Date Quantity Comments Source Gender identity [facility] Sexual orientation [facility] History of tobacco Cigar Smoker [facility] Alcohol intake 2022-10-30 2022-10-30 Current drinker [facility] 00:00:00 00:00:00 of alcohol Hospital (finding) History of Social 2022-10-30 2022-10-[address] function 00:00:00 00:00:00 Hospital Tobacco Comment 2022-10-30 2022-10-30 2-3 cigars day [facility] 00:00:00 00:00:00 Hospital Tobacco use and 2022-10-30 2022-10-30 Smokeless [facility] 00:00:00 00:00:00 tobacco non-user Hospital Sex Assigned At [birth year] [facility] Smoking Status Start Date Stop Date Source Smokes tobacco daily 2022-10-30 00:00:00 [facility] Medications Ordered Filled Start Stop Current Ordering Indication Dosage Frequency Signature Comments Components Source Medication Medication Date Date Medication? Clinician (SIG) Name Name atorvastati Yes [id number] 40mg QD Take 1 [facility] (LIPITOR) 5-15 tablet (40 st 40 mg 00:00: mg total) [facility]ospita tablet 00 by mouth l daily. atorvastati Yes [id number] 40mg QD Take 1 [facility] (LIPITOR) 5-15 tablet (40 st 40 mg 00:00: mg total) [facility]ospita tablet 00 by mouth l daily. metoprolol 2023- Yes [id number] 25mg QD Take 1 [facility] succinate 5-15 05-15 tablet (25 st XL 00:00: 04:59 mg total) [facility]ospita (TOPROL-XL) 00 :00 by mouth l 25 mg 24 hr daily. tablet metoprolol 2023- Yes [id number] 25mg QD Take 1 [facility] succinate 5-15 05-15 tablet (25 st XL 00:00: 04:59 mg total) [facility]ospita (TOPROL-XL) 00 :00 by mouth l 25 mg 24 hr daily. tablet benzonatate 2022- Yes [id number] 200mg Q.74387165 Take 1 [facility] (TESSALON) 5-15 06-[id number] 200 MG 00:00: 04:59 3D (200 mg [facility]ospita capsule 00 :00 total) by l mouth 3 (three) times a day as needed for cough for up to 30 days. benzonatate 2022- No [id number] 200mg Q.16894268 Take 1 [facility] (TESSALON) 5-15 06-[id number] 200 MG 00:00: 04:59 3D (200 mg [facility]ospita capsule 00 :00 total) by l mouth 3 (three) times a day as needed for cough for up to 30 days. fluticasone 2023-0 Yes [id number] 1{puff} Q.5D Inhale 1 [facility] propion-frederic 4-[address] meteroL 00:00: (two) Hospita (ADVAIR/ 00 times a l WIXELA day. INHUB) 250-50 mcg/dose DISKUS fluticasone 2023-0 Yes [id number] 1{puff} Q.5D Inhale 1 [facility] propion-frederic 4-[address] meteroL 00:00: (two) Hospita (ADVAIR/ 00 times a l WIXELA day. INHUB) 250-50 mcg/dose DISKUS benzonatate 2022-0 2022- No [id number] 200mg Q.70858365 Take 1 [facility] (TESSALON) 10-[id number] 200 MG 00:00: 00:00 3D (200 mg Hospita capsule 00 :00 total) by l mouth 3 (three) times a day as needed for cough for up to 30 days. benzonatate 2022-0 2022- No [id number] 200mg Q.46914449 Take 1 [facility] (TESSALON) 10-[id number] 200 MG 00:00: 00:00 3D (200 mg [facility]ospita capsule 00 :00 total) by l mouth 3 (three) times a day as needed for cough for up to 30 days. methylPREDN 2022-0 2022- No [id number] follow [facility] ISolone 10-[address] (Medrol, 00:00: 04:59 directions [facility]ita Donald,) 4 mg 00 :00 l tablet methylPREDN 2022-0 2022- No [id number] follow [facility] ISolone 10-[address] (Medrol, 00:00: 04:59 directions [facility]ita Donald,) 4 mg 00 :00 l tablet albuterol 2022-0 Yes 2{puff} Q4H Inhale 2 M [facility] (PROAIR 4-[address] HFA) 90 00:00: every 4 Hospita mcg/actuati 00 (four) l on inhaler hours as needed. albuterol Yes 2{puff} Q4H Inhale 2 M [facility] (PROAIR 4-[address] HFA) 90 00:00: every 4 Hospita mcg/actuati 00 (four) l on inhaler hours as needed. gabapentin Yes [id number] 300mg Q.5D Take 1 [facility] (NEURONTIN) 8-[address] 300 mg 00:00: (300 mg Hospita capsule 00 total) by l mouth 2 (two) times a day. gabapentin Yes [id number] 300mg Q.5D Take 1 [facility] (NEURONTIN) 8-[address] 300 mg 00:00: (300 mg Hospita capsule 00 total) by l mouth 2 (two) times a day. atorvastati 2022- No [id number] 40mg QD Take 1 [facility] (LIPITOR) 10-06 05-15 tablet (40 s t 40 mg 00:00: 00:00 mg total) Hospit a tablet 00 :00 by mouth l daily. atorvastati 2022- No [id number] 40mg QD Take 1 [facility] (LIPITOR) 10-06 05-15 tablet (40 s t 40 mg 00:00: 00:00 mg total) Hospit a tablet 00 :00 by mouth l daily. Immunizations Ordered Immunization Filled Immunization Date Status Commen ts Source Name Name FLUCELVAX QUAD PF 2020-05-[address] [facility] FLUCELVAX QUAD PF 2020-05-[address] [facility] Vital Signs Vital Name Observation Time Observation Value Comments Source Systolic blood 2022-10-30 19:40:00 164 mm[Hg] [facility] pressure Diastolic blood 2022-10-30 19:40:00 88 mm[Hg] [facility] pressure Heart rate 2022-10-30 19:40:00 73 /min [facility] Respiratory rate 2022-10-30 19:40:00 18 /min [facility] Body height 2022-10-30 19:40:00 165.1 cm [facility] Body weight 2022-10-30 19:40:00 59.784 kg [facility] BMI 2022-10-30 19:40:00 21.93 kg/m2 [facility] Oxygen saturation in 2022-10-30 19:40:00 99 /min [facility] Arterial blood by Pulse oximetry Procedures This patient has no known procedures. Plan of Care Planned Activity Planned Date Details Comments Source Future Scheduled 2022-12-15 Screening for [facility] Test 03:51:47 malignant neoplasm of colon (procedure) [code = 500104979] Future Scheduled 2022-12-15 Screening for [facility] Test 03:51:47 malignant neoplasm of colon (procedure) [code = 368692989] Future Scheduled 2022-12-15 SHINGLES VACCINES (1 [facility] Test 03:51:47 of 2) [code = SHINGLES VACCINES (1 of 2)] Future Scheduled 2022-12-15 INFLUENZA VACCINE [facility] Test 03:51:47 [code = INFLUENZA VACCINE] Future Scheduled 2022-12-15 Screening for [facility] Test 03:51:47 malignant neoplasm of colon (procedure) [code = 460459282] Future Scheduled 2022-12-15 Screening for [facility] Test 03:51:47 malignant neoplasm of colon (procedure) [code = 067494945] Future Scheduled 2022-12-15 Screening for [facility] Test 03:51:47 malignant neoplasm of colon (procedure) [code = 945355276] Future Scheduled 2022-12-15 COVID-19 VACCINE (#1) [facility] Test 03:51:47 [code = COVID-19 VACCINE (#1)] Future Scheduled 2022-12-15 Pneumococcal Vaccine: [facility] Test 03:51:47 Pediatrics (0 to 5 Years) and At-Risk Patients (6 to 64 Years) (1 - PCV) [code = Pneumococcal Vaccine: Pediatrics (0 to 5 Years) and At-Risk Patients (6 to 64 Years) (1 - PCV)] Future Scheduled 2022-12-15 Hepatitis C screening [facility] Test 03:51:47 (procedure) [code = 356355826] Future Scheduled 2022-11-23 COVID-19 VACCINE (#1) [facility] Test 15:50:42 [code = COVID-19 VACCINE (#1)] Future Scheduled 2022-11-23 Pneumococcal Vaccine: [facility] Test 15:50:42 Pediatrics (0 to 5 Years) and At-Risk Patients (6 to 64 Years) (1 - PCV) [code = Pneumococcal Vaccine: Pediatrics (0 to 5 Years) and At-Risk Patients (6 to 64 Years) (1 - PCV)] Future Scheduled 2022-11-23 Hepatitis C screening [facility] Test 15:50:42 (procedure) [code = 150664487] Future Scheduled 2022-11-23 COLONOSCOPY SCREENING [facility] Test 15:50:42 [code = COLONOSCOPY SCREENING] Future Scheduled 2022-11-23 SHINGLES VACCINES (1 Met [facility] Test 15:50:42 of 2) [code = SHINGLES VACCINES (1 of 2)] Future Scheduled 2022-11-23 INFLUENZA VACCINE Method [facility] Test 15:50:42 [code = INFLUENZA VACCINE] Encounters Start End Encounter Admission Attending Care Care Encounter Source Date/Time Date/Time Type Type Clinicians Facility Department ID 2022-11-19 2022-11-19 Orders Deluna, 1.2.840.1 [id number] [facility] 00:00:00 00:00:00 Only Castro Parks [id number] 3.430.2.7 Hospit a .3.764920 l .8 2022-11-19 2022-11-19 Orders Deluna, 1.2.840.1 [id number] [facility] 00:00:00 00:00:00 Only Castro Parks [id number] 3.430.2.7 Hospit a .3.706025 l .8 2022-11-17 2022-11-17 Refill Deluna, 1.2.840.1 [id number] [facility] 00:00:00 00:00:00 Castro Parks [id number] 3.430.2.7 Hospit a .3.944424 l .8 2022-11-17 2022-11-17 Refill Deluna, 1.2.840.1 [id number] [facility] 00:00:00 00:00:[address] 3.430.2.7 Hospit a .3.519193 l .8 2022-10-30 2022-10-30 Office Deluna, 1.2.840.1 [id number] [facility] 14:30:00 15:08:08 Visit Castro Parks [id number] 3.430.2.7 Hospit a .3.532983 l .8 2022-10-30 2022-10-30 Office Deluna, 1.2.840.1 [id number] [facility] 14:30:00 15:08:08 Visit Castro Parks [address]1560.1.[address] 3.430.2.7 Hospit a .3.696013 l .8 2021-02-21 2021-02-21 Outpatient DELUNA, [facility] [id number] 00:00:00 00:00:00 CASTRO [address] 2020-10-06 2020-10-06 Outpatient DELUNA, [facility] [id number] 00:00:00 00:00:00 CASTRO [address] 2020-06-29 2020-06-29 Outpatient DOMINY, [facility] [id number] 00:00:00 00:00:00 ALISTAIR [address] 2020-06-29 2020-06-29 Outpatient DELUNA, [facility] [id number] 00:00:00 00:00:00 CASTRO [address] 2020-05-24 2020-05-24 Outpatient DELUNA, [facility] [id number] 00:00:00 00:00:00 CASTRO [address] Results This patient has no known results.
[2022-12-21 21:47] LABS: Absolute Lymphocytes (CBC) 3.7 K/uL (0.7-4.9); Hematocrit 36.1 % (39.6-49.0); MCV 99.2 fL (80-100); MPV 8.8 fL (7.6-11.3); RBC Red Blood Cell Count 3.64 M/uL (4.33-5.43)
[2022-12-21 21:59] LABS: Protime INR 0.97
[2022-12-21] MEDS ORDERED: ALBUTEROL 2.5 MG/3 ML NEB SOL ONE (22:02)
[2022-12-21] MEDS ORDERED: IPRATROPIUM BROM 0.5MG/2.5ML ONE (22:02)
[2022-12-21] MEDS ORDERED: ASPIRIN 81 MG CHEWABLE TABLET ONE (22:02)
[2022-12-21 22:05] LABS: Magnesium 2.1 mg/dL (1.6-2.4); Potassium 3.6 mEq/L (3.5-5.1)
[2022-12-21] MEDS ORDERED: METHYLPREDNISOLONE 125 MG INJ ONE (22:05)
--- NOTE | 2022-12-21 22:27 | RAD REPORT ---
EXAM DESCRIPTION: Golden Single View12/21/2022 10:02 pm CLINICAL HISTORY: sob COMPARISON: December 09, 2022 FINDINGS: The lungs appear clear of acute infiltrate. The heart is normal size IMPRESSION: No acute abnormalities displayed
[2022-12-21 22:36] LABS: SARS-CoV-2 Antigen Rapid Res Negative (Negative)
--- NOTE | 2022-12-22 01:04 | EDPHYS ---
Physician Documentation [facility] Name: Juancho Sanchez Age: 57 yrs Sex: Male : 1965 Arrival Date: 12/21/2022 Time: 20:36 Bed 7 Private MD: ED Physician Jostin Vo HPI: 12/21 21:15 This 57 yrs old Black Male presents to ER via Ambulatory with complaints of Breathing cp Difficulty. 21:15 The patient has shortness of breath at rest. cp 21:15 Onset: The symptoms/episode began/occurred 2 day(s) ago. cp 21:15 Duration: The symptoms are continuous, and are steadily getting worse. The patient's cp shortness of breath is aggravated by light activity, is alleviated by nothing. Associated signs and symptoms: Pertinent negatives: chest pain, productive cough, diaphoresis, fever, vomiting. Severity of symptoms: in the emergency department the symptoms are unchanged despite home interventions. The patient has been recently been admitted at [facility], was discharged from the hospital December 09, 2022, for similar complaints, admitted for FL and had cardiac cath performed by DR Jj. Historical: - Allergies: 21:01 No Known Allergies; as6 - Home Meds: 12/22 01:24 aspirin 81 mg oral tablet,chewable [Active]; atorvastatin oral [Active]; kl - PMHx: 12/21 21:01 Hypertensive disorder; Myocardial infarction; as6 - PSHx: 21:01 Stented artery; as6 - Immunization history:: Client reports having NOT received the Covid vaccine. - Social history:: Smoking status: Patient/guardian denies using tobacco, the patient reports quitting approximately 1 years ago. ROS: 21:20 Constitutional: Negative for body aches, chills, fever, poor PO intake. cp 21:20 Eyes: Negative for injury, pain, redness, and discharge. cp 21:20 ENT: Negative for drainage from ear(s), ear pain, sore throat, difficulty swallowing, difficulty handling secretions. 21:20 Neck: Negative for pain with movement, pain at rest, stiffness. 21:20 Cardiovascular: Negative for chest pain, edema, palpitations. 21:20 Respiratory: Positive for shortness of breath, at rest. 21:20 Abdomen/GI: Negative for abdominal pain, vomiting, diarrhea, constipation. 21:20 Back: Negative for pain at rest, pain with movement. 21:20 Neuro: Negative for altered mental status, dizziness, headache, numbness, syncope, weakness. 21:20 All other systems are negative. Exam: 21:25 Constitutional: The patient appears in no acute distress, alert, awake, cp non-diaphoretic, non-toxic, well developed, well nourished. 21:25 Head/Face: Normocephalic, atraumatic. cp 21:25 Eyes: Periorbital structures: appear normal, Conjunctiva: normal, no exudate, no injection, Sclera: no appreciated abnormality, Lids and lashes: appear normal, bilaterally. 21:25 ENT: External ear(s): are unremarkable, Nose: is normal, Mouth: Lips: moist, Oral mucosa: pink and intact, moist, Posterior pharynx: is normal, airway is patent, no erythema, no exudate. 21:25 Neck: ROM/movement: is normal, is supple, without pain, no range of motions limitations, no nuchal rigidity. 21:25 Chest/axilla: Inspection: normal, Palpation: is normal, no crepitus, no tenderness. 21:25 Cardiovascular: Rate: normal, Rhythm: regular, Edema: is not appreciated, JVD: is not appreciated. 21:25 Respiratory: the patient does not display signs of respiratory distress, Respirations: labored breathing, that is mild, Breath sounds: decreased breath sounds, that are mild, throughout. 21:25 Abdomen/GI: Inspection: abdomen appears normal, Palpation: abdomen is soft and non-tender, in all quadrants. 21:25 Back: pain, is absent, ROM is normal. 21:25 Neuro: Orientation: to person, place \T\ time. Mentation: is normal, Motor: moves all cp fours, strength is normal, Sensation: is normal. 21:30 ECG was reviewed by the Attending Physician. cp Vital Signs: 21:01 BP 186 / 88; Pulse 73; Resp 20 S; Temp 98.1(O); Pulse Ox 100% on R/A; Weight 62.6 kg as6 (R); Height 5 ft. 5 in. (R); Pain 0/10; 21:30 BP 152 / 75; Pulse 64; Resp 24; Pulse Ox 99% on 2 lpm NC; ha1 22:20 BP 153 / 80; Pulse 65; Resp 21 S; Pulse Ox 99% on 2 lpm NC; ha1 12/22 00:16 BP 155 / 77; Pulse 68; kl 01:27 BP 139 / 77; Pulse 62; Resp 17; Pulse Ox 100% on 2 lpm NC; kl 12/21 21:01 Body Mass Index 22.96 (62.60 kg, 165.1 cm) as6 12/21 21:01 Pain Scale: Adult as6 MDM: 12/21 21:07 Patient medically screened. cp 22:00 Differential diagnosis: CHF exacerbation, Chronic Obstructive Pulmonary Disease cp Myocardial Infarction pneumonia, Pneumothorax pulmonary edema, Pulmonary Embolism reactive airway disease, Unstable Angina. 12/22 00:48 Data reviewed: vital signs, nurses notes, lab test result(s), EKG, radiologic studies, cp CT scan, plain films. Management of patient was discussed with the following: Director Workforce Management: DR Jj who recommends admission to hospitalist services and he will consult. 01:05 Consideration of Admission/Observation Patient was admitted/placed on observation. cp 01:05 Management of patient was discussed with the following: Hospitalist: Reena Montejo NP cp will admit after discussion. Independent interpretation of the following test(s) in the Emergency Department EKG: See my EKG interpretation above. Care significantly affected by the following chronic conditions: Hypertension. Counseling: I had a detailed discussion with the patient and/or guardian regarding: the historical points, exam findings, and any diagnostic results supporting the discharge/admit diagnosis, lab results, radiology results, the need for further work-up and treatment in the hospital. 12/21 21:12 Order name: Basic Metabolic Panel; Complete Time: 22:22 cp 12/21 22:22 Interpretation: Normal except: GFR 72. cp 12/21 21:12 Order name: CBC with Diff; Complete Time: 22:22 cp 12/21 22:22 Interpretation: Normal except: RBC 3.64; HGB 12.0; HCT 36.1; MN% 12.6. cp 12/21 21:12 Order name: D-Dimer; Complete Time: 22:22 cp 12/21 21:12 Order name: Magnesium; Complete Time: 22:22 cp 12/21 21:12 Order name: NT PRO-BNP; Complete Time: 22:22 cp 12/21 22:22 Interpretation: Abnormal: NT PRO-BNP 1160. 12/21 21:12 Order name: PT-INR; Complete Time: 22:22 12/21 21:12 Order name: Troponin HS; Complete Time: 22:22 12/21 22:22 Interpretation: Abnormal: Troponin HS 253.0. / 21:12 Order name: SARS RAPID; Complete Time: 23:38 12/21 21:12 Order name: Influenza Screen (a \T\ B); Complete Time: 23:38 12/21 22:28 Order name: UDS 12/21 21:12 Order name: XRAY Chest (1 view); Complete Time: 23:38 12/21 22:23 Order name: CT Chest For PE Angio 12/21 21:12 Order name: EKG; Complete Time: 21:12 cp 12/21 21:12 Order name: Cardiac monitoring; Complete Time: 21:27 12/21 21:12 Order name: EKG - Nurse/Tech; Complete Time: : 12/21 21:12 Order name: IV Saline Lock; Complete Time: : 12/21 21:12 Order name: Labs collected and sent; Complete Time: : 12/21 21:12 Order name: O2 Per Protocol; Complete Time: : 12/21 21:12 Order name: O2 Sat Monitoring; Complete Time: 21:28 cp EC/16 21:30 Rate is 69 beats/min. Rhythm is regular. HI interval is normal. QRS interval is normal. cp QT interval is normal. T waves are Inverted in leads II, III, aVF, V5, V6. Interpreted by me. Reviewed by me. Administered Medications: 22:11 Drug: DuoNeb Nebulize (2.5 mg - 0.5 mg) 3 ml Route: Nebulizer; kl 22:29 Follow up: Response: No adverse reaction; Marked relief of symptoms kl 22:11 Drug: MethylPrednisoLONE IVP 80 mg Route: IVP; Site: right forearm; kl 22:29 Follow up: Response: No adverse reaction kl 22:12 Drug: Aspirin PO Chewable Tablet 324 mg Route: PO; kl 12/22 01:42 Not Given (Physician Discretion): Enoxaparin Sub-Q 1 mg/kg Sub-Q once kl Disposition: 00:42 Co-signature as Attending Physician, Jostin Vo MD I agree with the assessment sp4 and plan of care. I reviewed the patient's care provided by Advanced Practice Provider \T\ agree w/ the diagnosis \T\ care plan. I personally saw the pt \T\ performed a substantive portion of the visit, incldng all aspects of the (History/Exam/Medical Decision Making). Disposition Summary: 12/22/22 01:03 Hospitalization Ordered Hospitalization Status: Inpatient Admission cp Provider: Tian Singleton cp Location: Telemetry/MedSur (Inpatient) cp Condition: Stable cp Problem: new cp Symptoms: have improved cp Bed/Room Type: Standard Room Assignment: 221(12/22/22 01:19) as6 Diagnosis - Subsequent non-ST elevation (NSTEMI) myocardial infarction cp - Dyspnea cp Forms: - Medication Reconciliation Form cp - SBAR form cp Signatures: Dispatcher [employer] EDMS Princess Euceda RN RN kl Page, Corey, PA PA cp Slawson, Ashby, RN RN as6 Jostin Vo MD MD sp4 Corrections: (The following items were deleted from the chart) 00:49 00:48 Immunization status: Influenza vaccine: cp cp 01:19 01:03 cp as6 23:47 12/21 21:15 The patient has been recently been admitted at [facility], was discharged last week, for similar complaints, admitted for FL and had cardiac cath performed by DR Анна cp 12/22 23:47 12/21 21:15 The patient has been recently been admitted at [facility], was discharged from the hospital December 11, 2022, for similar complaints, admitted for FL and had cardiac cath performed by DR Анна cp
--- NOTE | 2022-12-22 01:04 | ER ---
Nurse's Notes [facility] Name: Juancho Sanchez Age: 57 yrs Sex: Male : 1965 Arrival Date: 12/21/2022 Time: 20:36 Bed 7 Private MD: Diagnosis: Subsequent non-ST elevation (NSTEMI) myocardial infarction;Dyspnea Presentation: 12/21 21:01 Chief complaint: Patient states: shortness of breath x2 days, denies chest pain. as6 Coronavirus screen: At this time, the client does not indicate any symptoms associated with coronavirus-19. Ebola Screen: No symptoms or risks identified at this time. Initial Sepsis Screen: Does the patient meet any 2 criteria? No. Patient's initial sepsis screen is negative. Does the patient have a suspected source of infection? No. Patient's initial sepsis screen is negative. Risk Assessment: Do you want to hurt yourself or someone else? Patient reports no desire to harm self or others. Onset of symptoms was December 19, 2022. 21:01 Acuity: ALINE 3 as6 21:01 Method Of Arrival: Ambulatory as6 Triage Assessment: 12/22 01:23 General: Appears in no apparent distress. Behavior is calm, cooperative. Respiratory: kl Onset: The symptoms/episode began/occurred gradually, the patient has mild shortness of breath. Respiratory: Reports shortness of breath on exertion. Historical: - Allergies: 12/21 21:01 No Known Allergies; as6 - Home Meds: 12/22 01:24 aspirin 81 mg oral tablet,chewable [Active]; atorvastatin oral [Active]; kl - PMHx: 12/21 21:01 Hypertensive disorder; Myocardial infarction; as6 - PSHx: 21:01 Stented artery; as6 - Immunization history:: Client reports having NOT received the Covid vaccine. - Social history:: Smoking status: Patient/guardian denies using tobacco, the patient reports quitting approximately 1 years ago. Screenin:54 [facility] ED Fall Risk Assessment (Adult) History of falling in the last 3 months, ha1 including since admission No falls in past 3 months (0 pts) Confusion or Disorientation No (0 pts) Intoxicated or Sedated No (0 pts) Impaired Gait No (0 pts) Mobility Assist Device Used No (0 pt) Altered Elimination No (0 pt) Score/Fall Risk Level 0 - 2 = Low Risk Oriented to surroundings, Maintained a safe environment, Educated pt \T\ family on fall prevention, incl call for assistance when getting out of bed. Abuse screen: Denies threats or abuse. Denies injuries from another. Nutritional screening: No deficits noted. Tuberculosis screening: No symptoms or risk factors identified. Assessment: 20:54 General: Appears uncomfortable, Behavior is calm, cooperative. Pain: Denies pain. ha1 Neuro: Level of Consciousness is awake, alert, obeys commands, Oriented to person, place, time, situation. Cardiovascular: Reports shortness of breath, Heart tones S1 S2 present Rhythm is sinus rhythm. Respiratory: Airway is patent Respiratory effort is even, unlabored, Respiratory pattern is tachypnea. GI: No signs and/or symptoms were reported involving the gastrointestinal system. Derm: Skin is moist, Skin is normal. Musculoskeletal: Circulation, motion, and sensation intact. Range of motion: intact in all extremities. 21:50 Reassessment: Patient and/or family updated on plan of care and expected duration. Pain ha1 level reassessed. Patient is alert, oriented x 3, equal unlabored respirations, skin warm/dry/pink. 22:50 Reassessment: Patient and/or family updated on plan of care and expected duration. Pain ha1 level reassessed. Patient is alert, oriented x 3, equal unlabored respirations, skin warm/dry/pink. Patient states feeling better. Patient states symptoms have improved. 12/22 00:15 Reassessment: Patient appears in no apparent distress at this time. Patient and/or kl family updated on plan of care and expected duration. Pain level reassessed. Patient states symptoms have improved. 00:51 Cardiovascular: Rhythm is sinus rhythm with multifocal PVCs. kl 01:23 Respiratory: Breath sounds are clear bilaterally. Vital Signs: 12/21 21:01 BP 186 / 88; Pulse 73; Resp 20 S; Temp 98.1(O); Pulse Ox 100% on R/A; Weight 62.6 kg as6 (R); Height 5 ft. 5 in. (R); Pain 0/10; 21:30 BP 152 / 75; Pulse 64; Resp 24; Pulse Ox 99% on 2 lpm NC; ha1 22:20 BP 153 / 80; Pulse 65; Resp 21 S; Pulse Ox 99% on 2 lpm NC; ha1 12/22 00:16 BP 155 / 77; Pulse 68; kl 01:27 BP 139 / 77; Pulse 62; Resp 17; Pulse Ox 100% on 2 lpm NC; kl 12/21 21:01 Body Mass Index 22.96 (62.60 kg, 165.1 cm) as6 12/21 21:01 Pain Scale: Adult as6 ED Course: 12/21 20:37 Patient arrived in ED. ja2 20:42 Agapito Bright PA is PHCP. cp 20:42 Jostin Vo MD is Attending Physician. cp 20:54 Patient has correct armband on for positive identification. Placed in gown. Bed in low ha1 position. Call light in reach. Side rails up X 1. 21:01 Arm band placed on. as6 21:03 Triage completed. as6 21:15 Missed attempt(s): 22 gauge in left forearm. ha1 21:27 EKG done, by ED staff, reviewed by Agapito BAR. jw7 21:32 Influenza Screen (a \T\ B) Sent. kl 21:32 SARS RAPID Sent. kl 21:32 Basic Metabolic Panel Sent. kl 21:32 CBC with Diff Sent. kl 21:32 D-Dimer Sent. kl 21:32 Magnesium Sent. kl 21:32 NT PRO-BNP Sent. kl 21:32 PT-INR Sent. kl 21:32 Troponin HS Sent. kl 21:34 Inserted saline lock: 20 gauge in right forearm, using aseptic technique. Blood kl collected. 22:03 XRAY Chest (1 view) In Process Unspecified. EDMS 22:11 SARS RAPID Sent. kl 22:11 Influenza Screen (a \T\ B) Sent. kl 22:30 Jessica Heller, ANIKA is Primary Nurse. ha1 23:06 CT Chest For PE Angio In Process Unspecified. EDMS 12/22 01:01 Tian Singleton MD is Hospitalizing Provider. cp 01:22 No provider procedures requiring assistance completed. Patient admitted, IV remains in kl place. Administered Medications: 12/21 22:11 Drug: DuoNeb Nebulize (2.5 mg - 0.5 mg) 3 ml Route: Nebulizer; kl 22:29 Follow up: Response: No adverse reaction; Marked relief of symptoms kl 22:11 Drug: MethylPrednisoLONE IVP 80 mg Route: IVP; Site: right forearm; 22:29 Follow up: Response: No adverse reaction 22:12 Drug: Aspirin PO Chewable Tablet 324 mg Route: PO; kl 12/22 01:42 Not Given (Physician Discretion): Enoxaparin Sub-Q 1 mg/kg Sub-Q once kl Medication: 01:25 VIS not applicable for this client. Outcome: 01:03 Decision to Hospitalize by Provider. cp 01:23 Admitted to Med/surg via wheelchair, room 221, with chart, Report called to CRUZ lawrence 01:23 Condition: improved 01:23 Discharge instructions given to patient, Instructed on the need for admit, Demonstrated understanding of instructions. 02:02 Patient left the ED. Signatures: Dispatcher [employer] EDMS Princess Euceda, RN Agapito Arora, Elza Hinton cp, Ashby, RN RN as6 Megha Lee7 Jessica Heller RN RN ha1
--- NOTE | 2022-12-22 01:21 | P.HP ---
Certification for Inpatient Patient admitted to: Observation With expected LOS: <2 Midnights Patient will require the following post-hospital care: None Practitioner: I am a practitioner with admitting privileges, knowledge of patient current condition, hospital course, and medical plan of care. Services: Services provided to patient in accordance with Admission requirements found in Title 42 Section 412.3 of the Code of Federal Regulations Patient History Date of Service: 12/22/22 Reason for admission: NSTEMI History of Present Illness: Mr. Sanchez is a 57 year old male with past medical history of hypertension, coronary artery disease, and COPD who presented to the emergency department with complaints of shortness of breath. Patient was admitted here about 2 weeks ago for NSTEMI, had a heart catheterization and no significant stenosis was noted, no stents placed, medical management recommended. Echocardiogram was normal. He was discharged with atorvastatin and metoprolol. He states that he was feeling well until about 2 days ago when the same symptoms as before returned. His workup was very similar to prior, elevated troponin and BNP. Chest xray negative. Chest CTA negative for PE. EKG without STEMI critieria. Cardiology was contacted and recommended admission. Allergies No Known Allergies Allergy (Unverified 12/09/22 16:31) Home medications list reviewed: Yes Home Medications: Atorvastatin Calcium [Lipitor] 40 mg PO 12/09/22 Metoprolol Succinate 25 mg PO 12/09/22 predniSONE [Prednisone*] 20 mg PO BID 4 Days #8 tab 12/12/22 - Past Medical/Surgical History Diabetic: No -: HTN -: CAD -: COPD -: Stent 2017 Psychosocial/ Personal History: Patient lives at home with his girlfriend. - Family History Family History: Reviewed- Non-Contributory - Social History Smoking Status: Former smoker Alcohol use: Yes CD- Drugs: No Caffeine use: Yes Place of Residence: Home Review of Systems Respiratory: Shortness of Breath Physical Examination - Vital Signs Temperature: 98.1 F Blood Pressure: 155/77 Pulse: 68 Respirations: 21 Pulse Ox (%): 99 - Physical Exam General: Alert, In no apparent distress HEENT: Atraumatic, EOMI, Sclerae nonicteric Neck: Supple, 2+ carotid pulse no bruit Respiratory: Clear to auscultation bilaterally, Normal air movement Cardiovascular: Regular rate/rhythm, Normal S1 S2 Gastrointestinal: Normal bowel sounds, No tenderness Musculoskeletal: No tenderness Integumentary: No rashes Neurological: Normal speech, Normal affect - Studies Laboratory Data (last 24 hrs) 12/21/22 21:20: PT 10.7, INR 0.97 12/21/22 21:20: WBC 10.10, Hgb 12.0 L, Hct 36.1 L, Plt Count 246 12/21/22 21:20: Sodium 141, Potassium 3.6, BUN 9, Creatinine 1.18, Glucose 93, Magnesium 2.1 Microbiology Data (last 24 hrs): 12/21/22 21:15 Nasopharnyx Influenza Type A Antigen Screen - Final 12/21/22 21:15 Nasopharnyx Influenza Type B Antigen Screen - Final Assessment and Plan - Problems (Diagnosis) (1) Coronary artery disease Current Visit: Yes Status: Chronic Qualifiers: Coronary Disease-Associated Artery/Lesion type: [place] artery [place] vs. transplanted heart: [place] heart Associated angina: with unstable angina Qualified Code(s): I25.110 - Atherosclerotic heart disease of [place] coronary artery with unstable angina pectoris (2) Essential hypertension Current Visit: Yes Status: Chronic (3) Non-STEMI (non-ST elevated myocardial infarction) Current Visit: Yes Status: Acute - Plan Patient is admitted for further management of subsequent NSTEMI. Consult cardiology. Monitor on telemetry. Currently having frequent multiform PVCs. He denies any chest pain/palpitations. Continue daily aspirin, atorvastatin, beta pillo. He is mainly complaining of dyspnea. O2 satisfactory. PRN breathing treatments. Monitor pulse oximetry. Discharge Plan: Home Plan to discharge in: 24 Hours - Advance Directives Does patient have a Living Will: No Does patient have a Durable POA for Healthcare: No - Code Status/Comfort Care Code Status Assessed: Yes Code Status: Full Code Physician Review: Patient Assessed, Agree with Above Assessment and Plan Critical Care: No Time Spent Managing Pts Care (In Minutes): 50
[2022-12-22] MEDS ORDERED: MAGNESIUM SULFATE 1 gm IVPB 1 GM/100 ML BAG IV ONE (01:38)
[2022-12-22] MEDS ORDERED: ACETAMINOPHEN 500 MG TAB PO PRN (01:38)
[2022-12-22] MEDS ORDERED: ALBUTEROL 2.5 MG/3 ML NEB SOL NEB PRN (01:38)
[2022-12-22] MEDS ORDERED: ONDANSETRON 4 MG/2 ML VIAL IV PRN (01:38)
[2022-12-22 02:02] LABS: Barbiturates NEGATIVE (NEGATIVE); Benzodiazepines NEGATIVE (NEGATIVE); Cocaine NEGATIVE (NEGATIVE); METHAMPHETAM NEGATIVE (NEGATIVE); Methadone NEGATIVE (NEGATIVE); Opiates NEGATIVE (NEGATIVE); Phencyclidine NEGATIVE (NEGATIVE); THC Cannibis NEGATIVE (NEGATIVE)
[2022-12-22 02:14] VITALS: BMI 22.6
[2022-12-22] MEDS: ASPIRIN 81 MG CHEWABLE TABLET PO SCH (08:50)
[2022-12-22] MEDS: ENOXAPARIN 40 MG/0.4 ML SQ SCH (08:50)
[2022-12-22] MEDS ORDERED: POTASSIUM CL SA 10 MEQ TAB PO ONE (09:00)
--- NOTE | 2022-12-22 09:52 | P.PN ---
Date of Service: 12/22/22 Patient is 57 years of age admitted with shortness of breath he has been having shortness of breath and dysphonia since he had a pneumonia in October and is not a heavy smoker recent cardiac cath shows minimal coronary artery disease and recommendation was for medical management no stents were placed back again with shortness of breath his chest x-ray is clear CT angiogram is also negative he is dysphonic some mild stridor of ordered CT of the neck Adeel data is unremarkable vital signs are stable have added prednisone and nebulized
[2022-12-22] MEDS: ARFORMOTEROL TARTRATE 15 MCG/2 ML VIAL.NEB NEB SCH ×2 (10:00→21:55)
--- NOTE | 2022-12-22 10:44 | RAD REPORT ---
EXAM DESCRIPTION: CT - Soft Tissue Neck W/Contr CLINICAL HISTORY: Mild stridor dysphonia Neck pain and swelling COMPARISON: Chest For Pe Angio dated 12/21/[address] scans are performed using dose optimization technique as appropriate and may includ e automated exposure control or mA/KV adjustment according to patient size. FINDINGS: Nasopharyngeal tissues are normal in appearance. Fossa Rosenmller are normal. Parapharyngeal fat triangles are symmetric. Tongue base structures are normal. Epiglottis and aryepiglottic folds are normal. Piriform sinuses are well aerated. Ill-defined soft tissue mass is seen involving the left vocal cord/ glottis extending anteriorly. Thi s approximately measures 42 x 24 x 12 mm. This abuts the left aspect of the thyroid cartilage hand ap pears to cross midline. Direct visualization is recommended. Salivary glands are normal in appearance. Normal size thyroid gland. Upper lung gutierrez are clear. Included intracranial contents are unremarkable. IMPRESSION: Poorly defined soft tissue mass is seen in the region of the left vocal cord/left glotti c airway, approximately measuring 4 x 2 x 1 cm. This is worrisome for a neoplastic lesion. Recommend direct visualization
[2022-12-22] MEDS: predniSONE 20 MG TAB PO SCH ×2 (10:57→20:45)
--- NOTE | 2022-12-22 11:34 | P.CNS ---
Date of Consult: 12/22/22 Reason for consultation: Stridor HPI: 57yo with progressive hoarseness since October 2022 and admitted overnight with SOB. He was admitted 12/09/2022 with cough and congestion with failed oupatient treatment with Abx and steroids. Had elevated Trop and BNP at that time with normal CXR. He had Cath with Dr Jj on 12/19 with 70% RCS stenosis and small vessel but otherwise only moderate CAD and no stenting performed at that time. History of tobacco, quit in 11/2022. PMH: HTN, CAD, coronary stent in 2017. Cath 12/2022. SH: Recent cessation of tobacco. No EtOH/DOA. Exam: NAD. Relaxed in bed but with significantly hoarse voice with low volume. Stridor with deep inspiration. No current increase work of breathing, tripod-ing or use of accessory muscles. 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 Anterior cricoid cartilage difficult to discern for cartilage invasion. No discernable LAD noted on my read. Labs: CBC with mild anemia. BMP WNL. BNP 226-357. Trop 1160 last night. UDS negative. 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 No immediate indication for intubation due to lack of acute airway distress but concern for airway safety if he begins to decompensate. If the patient acutely decompensates, recommend intubation with smallest possible tube. Additionally, due to the location of the tumor, tracheotomy may be high risk due to risk of cutting in to the tumor, bleeding into the airway and difficulty with placement/need for very low tracheotomy in order to bypass tumor. Recommend consideration for transfer for high level of care with teritary care team.
[2022-12-22] MEDS ORDERED: ATORVASTATIN 40 MG TAB PO SCH (21:00)
[2022-12-23 03:38] LABS: Potassium 4.7 mEq/L (3.5-5.1)
[2022-12-23] MEDS: ENOXAPARIN 40 MG/0.4 ML SQ SCH (07:56)
[2022-12-23] MEDS: ASPIRIN 81 MG CHEWABLE TABLET PO SCH (07:57)
[2022-12-23] MEDS: predniSONE 20 MG TAB PO SCH (07:57)
[2022-12-23] MEDS ORDERED: METOPROLOL XL 25 MG TAB PO SCH (09:00)
[2022-12-23] MEDS ORDERED: ATORVASTATIN 40 MG TAB PO SCH (09:00)
[2022-12-23] MEDS: ARFORMOTEROL TARTRATE 15 MCG/2 ML VIAL.NEB NEB SCH ×2 (09:14→20:00)
--- NOTE | 2022-12-23 09:33 | P.PN ---
Subjective Date of Service: 12/23/22 Chief Complaint: Laryngeal mass Subjective: Improving (Patient is improving somewhat shortness of breath is better still has audible stridor) Review of Systems Unremarkable Physical Examination - Vital Signs Temperature: 97.6 F Blood Pressure: 134/68 Pulse: 57 Respirations: 16 Pulse Ox (%): 97 - Physical Exam General: Alert, In no apparent distress Neck: Supple, No LAD, Other (Audible stridor) Respiratory: Clear to auscultation bilaterally Cardiovascular: No edema, Regular rate/rhythm Assessment And Plan - Current Problems (Diagnosis) (1) Laryngeal mass Current Visit: Yes Status: Acute Plan: Patient has a large laryngeal mass seen by ENT plan to transfer to [place] high risk patient shortness of breath seem to be improving we will change to Decadron nebulizers no other complaints today await transfer opponent is elevated probably secondary to demand ischemia he recently had a cardiac cath done increase metoprolol to 25 mg twice daily patient denies any chest pain of Decadron IV Physician Review: Patient Assessed, Agree with Above Assessment and Plan
[2022-12-23] MEDS: dexAMETHasone 4 MG/ML VIAL IV SCH (16:06)
[2022-12-23] MEDS ORDERED: ALBUTEROL 2.5 MG/3 ML NEB SOL NEB PRN (17:00)
--- NOTE | 2022-12-23 19:50 | RAD REPORT ---
EXAM DESCRIPTION: Chest For Pe Angio CLINICAL HISTORY: SOB TECHNIQUE: Contiguous axial images obtained through the chest during angiographic phase following th e uneventful administration of IV contrast. Sagittal and coronal reformatted images were provided. 3- D MIP reformatted images were provided. This exam was performed according to our departmental dose-optimization program, which includes autom ated exposure control, adjustment of the mA and/or kV according to patient size and/or use of iterati ve reconstruction technique. COMPARISON: No prior exams provided for comparison. FINDINGS: Diagnostic quality: There is adequate opacification of the pulmonary arterial tree. Suboptimal evaluation of subsegmental pulmonary arteries in the lung bases secondary to respiratory m otion artifact. Lungs: No focal consolidation. Airways are patent. Pleura: No effusion. No pneumothorax. Heart and pericardium: The heart is normal in size. No pericardial effusion. Mediastinum and suly: No pathologically enlarged lymph nodes. Lower neck and chest wall: Unremarkable Vessels: No pulmonary arterial filling defects. No thoracic aortic aneurysm. Upper abdomen: Small nonobstructive bilateral renal stones measuring less than 3 mm. Bones: Unremarkable IMPRESSION: 1. No pulmonary embolic disease. Suboptimal evaluation of subsegmental pulmonary arter ies in the lung bases secondary to respiratory motion artifact. 2. No focal consolidation. 3. Small nonobstructive bilateral renal stones. Electronically signed by: Carlos Lee MD 12/22/2022 12:26 AM CDT Due to temporary technical issues with the PACS/Fluency reporting system, reports are being signed by the in house radiologists without review as a courtesy to insure prompt reporting. The interpreting radiologist is fully responsible for the content of the report.
[2022-12-23] MEDS: METOPROLOL XL 25 MG TAB PO SCH (20:51)
[2022-12-24] MEDS: dexAMETHasone 4 MG/ML VIAL IV SCH ×4 (00:12→19:16)
[2022-12-24] MEDS: ENOXAPARIN 40 MG/0.4 ML SQ SCH (08:04)
[2022-12-24] MEDS: ASPIRIN 81 MG CHEWABLE TABLET PO SCH (08:05)
[2022-12-24] MEDS: ARFORMOTEROL TARTRATE 15 MCG/2 ML VIAL.NEB NEB SCH ×2 (08:20→20:45)
[2022-12-24] MEDS: METOPROLOL XL 25 MG TAB PO SCH ×2 (08:31→19:15)
--- NOTE | 2022-12-24 12:30 | P.PN ---
Subjective Date of Service: 12/24/22 Chief Complaint: Laryngeal mass Patient has no new complaint. He is aphonic. He denies shortness of breath. Physical Examination - Vital Signs Temperature: 98.0 F Blood Pressure: 138/65 Pulse: 55 Respirations: 18 Pulse Ox (%): 95 - Physical Exam General: Alert, In no apparent distress, Oriented x3 HEENT: Mucous membr. moist/pink Neck: Supple, JVD not distended Respiratory: Clear to auscultation bilaterally, Normal air movement, Other (No stridor) Cardiovascular: Regular rate/rhythm, Normal S1 S2 Gastrointestinal: Normal bowel sounds, Soft and benign, Non-distended, No tenderness Musculoskeletal: No swelling, No tenderness Integumentary: No rashes, No cyanosis Neurological: Normal strength at 5/5 x4 extr, Cranial nerves 3-12 intact Assessment And Plan - Current Problems (Diagnosis) (1) Laryngeal mass Current Visit: Yes Status: Acute (2) Essential hypertension Current Visit: Yes Status: Chronic (3) Elevated troponin Current Visit: Yes Status: Acute - Plan Patient seen and evaluated by ENT Dr. Bowling. Transfer to tertiary center for examination and biopsy/tracheotomy recommended. Transfer initiated, waiting for acceptance. Continue bronchodilators and IV steroid Troponin trended flat. Patient is asymptomatic. Elevated troponin likely secondary to demand ischemia. Continue metoprolol and aspirin. DVT prophylaxis: Lovenox
--- NOTE | 2022-12-24 17:55 | EKG ---
Test Date: 2022-12-21 Test Time: 21:24:46 Airport Attendant: EUGENIA MEASUREMENT RESULTS: Intervals: Rate: 69 AL: 138 QRSD: 88 QT: 384 QTc: 411 Shock: P: 69 AL: 138 QRS: 96 T: -68 INTERPRETIVE STATEMENTS: Sinus rhythm with occasional premature ventricular complexes Septal infarct, age undetermined Lateral infarct, age undetermined ST & T wave abnormality, consider inferior ischemia Abnormal ECG Compared to ECG 12/09/2022 12:10:43 Ventricular premature complex(es) now present Myocardial infarct finding now present ST (T wave) deviation now present Atrial premature complex(es) no longer present T-wave abnormality no longer present Possible ischemia still present Electronically Signed On 12-24-22 17:51:04 CDT by Oral Jj
--- NOTE | 2022-12-24 18:47 | CON ---
Date of Consultation: 12/24/2022 Reason For Consultation: Elevated troponin. History Of Present Illness: This is a 57-year-old male with history of hypertension, mild nonobstruc tive coronary artery disease by recent cath, COPD, presented to the emergency room with shortness of breath and he has significant hoarseness. He had a heart catheterization recently, no significant di sease. Denies having any chest pain. No abdominal pain, nausea, vomiting, or diarrhea. Past Medical History: Hypertension, mild coronary artery disease, and COPD. Medications: Refer to reconciliation sheet for detailed list. Allergies: NO KNOWN DRUG ALLERGIES. Family History: No premature coronary artery disease or cancer. Social History: He is an ex-smoker. Does not smoke. Does not drink or use any drugs. Review of Systems: All systems reviewed and they were negative except what mentioned in HPI. Physical Examination: Vital Signs: Reviewed. Head and Neck: Pupils are equal, reactive to light. Intact eye movements. No JVD. No cervical lym phadenopathy. Neck is supple. Thyroid is not enlarged. Lungs: Clear to auscultation bilaterally. No rhonchi, wheezing, or crackles. No accessory muscle u se. Heart: Regular rate and rhythm. No extra sounds. Abdomen: Soft, nontender. Bowel sounds positive. No organomegaly. No masses or hernia. No rigidi ty or rebound. Extremities: No edema, clubbing, or cyanosis. Intact pulses. Skin: No rash. Neurologic: Alert, awake, oriented x3. No acute focal deficits appreciated. Investigations: BUN 17, creatinine 1.08. Troponin peaked at 261, down to 226. Hemoglobin 12. Assessment And Recommendations: 1.Elevated troponin. No chest pain. Recent coronary angiogram with [id number] nonobstructive coronary artery disease and the patient is asymptomatic. This is a troponin leak, likely due to dem and, but it is not an acute coronary syndrome. From Cardiology standpoint, I would recommend to cont inue medical management with beta-pillo, baby aspirin, high-dose statin. If the patient becomes sy mptomatic, then further ischemia workup will be warranted. 2.Elevated NT-proBNP, probably diastolic dysfunction. He had an echocardiogram done, which showed n ormal ejection fraction. We will continue to monitor. /MIKE Voice ID: [id number] Report ID: [id number]
[2022-12-25] MEDS: dexAMETHasone 4 MG/ML VIAL IV SCH ×3 (00:15→16:21)
--- NOTE | 2022-12-25 06:58 | P.PN ---
Date of Service: 12/25/22 Subjective: doing okay breathing remains ~same no new / worsening problems slight shortness of breath with exertion, occasionally feels more noisy in throat voice unchanged intermittent cough, and intermittently feels like phlegm stuck in throat and can't cough out ROS: 10 point ROS as noted above, otherwise negative Physical Exam: GEN: Alert, oriented, hoarse/weak voice HEENT: Normal conjunctiva, sclera anicteric CV: Regular rate and rhythm, no edema Pulm: Non-labored respirations on room air, mild upper airway wheeze, with stridor on deep inspiration ABD: Soft, nontender, nondistended vitals reviewed Problem List: Laryngeal Mass, left; (~[id number]) Hypertension Elevated Troponin Patient seen and evaluated by ENT, Dr. Bowling. recommended transfer to tertiary center for examination and biopsy/tracheot gasper due to distal extension/involvement Transfer initiated, waiting for acceptance. Delayed due to weekend/holiday, inability to confirm insurance Continue bronchodilators and IV steroid Troponin trended flat. Patient is asymptomatic. Cardiology consulted Echo: LVEF: 50%, mild mitral & tricuspid regurgitation Elevated troponin felt likely secondary to demand ischemia. Continue metoprolol, baby aspirin VTE: Lovenox Code: Full Dispo: pending transfer to [facility] Transfer initiated, waiting for acceptance
--- NOTE | 2022-12-25 06:59 | ECHO ---
HEIGHT: 5 ft 5 in WEIGHT: 135 lb 11.2 oz DATE OF STUDY: 12/24/[address]: Darryl Gilmore MD 2-DIMENSIONAL: YES M.MODE: YES DOPPLER: YES COLOR FLOW: YES TDS: PORTABLE: YES DEFINITY: BUBBLE STUDY: DIAGNOSIS: SHORTNESS OF BREATH CARDIAC HISTORY: CATHERIZATION: SURGERY: PROSTHETIC VALVE: PACEMAKER: MEASUREMENTS (cm) DIASTOLIC (NORMALS) SYSTOLIC (NORMALS) IVSd 0.8 (0.6-1.2) LA Diam 3.4 (1.9-4.0) LVEF 50% LVIDd 5.7 (3.5-5.7) LVIDs 4.2 (2.0-3.5) %FS 26% LVPWd 1.1 (0.6-1.2) Ao Diam 2.3 (2.0-3.7) 2 DIMENSIONAL ASSESSMENT: RIGHT ATRIUM: NORMAL LEFT ATRIUM: NORMAL RIGHT VENTRICLE: NORMAL LEFT VENTRICLE: NORMAL TRICUSPID VALVE: MILD TRICUSPID REGURGITATION MITRAL VALVE: MILD MITRAL REGURGITATION PULMONIC VALVE: MILD PULMONIC INSUFFICIENCY AORTIC VALVE: MODERATE AORTIC INSUFFICIENCY PERICARDIAL EFFUSION: NONE AORTIC ROOT: NORMAL LEFT VENTRICULAR WALL MOTION: NORMAL DOPPLER/COLOR FLOW: SEE BELOW COMMENTS: 1. NORMAL LEFT VENTRICULAR EJECTION FRACTION 55-60% WITH NORMAL WALL MOTION 2. MILD MITRAL REGURGITATION 3. MILD TRICUSPID REGURGITATION 4. MODERATE AORTIC INSUFFICIENCY TECHNOLOGIST: SATHISH ENRIQUEZ
[2022-12-25] MEDS: ARFORMOTEROL TARTRATE 15 MCG/2 ML VIAL.NEB NEB SCH ×2 (07:30→20:08)
[2022-12-25] MEDS: ASPIRIN 81 MG CHEWABLE TABLET PO SCH (09:22)
[2022-12-25] MEDS: METOPROLOL XL 25 MG TAB PO SCH ×2 (09:23→20:13)
[2022-12-25] MEDS: ENOXAPARIN 40 MG/0.4 ML SQ SCH (09:23)
[2022-12-26] MEDS: dexAMETHasone 4 MG/ML VIAL IV SCH ×3 (00:28→16:02)
--- NOTE | 2022-12-26 06:51 | P.PN ---
Date of Service: 12/26/22 Subjective: doing okay denies any episodes of shortness of breath today voice unchanged, +intermittent cough otherwise no new / worsening problems ROS: 10 point ROS as noted above, otherwise negative Physical Exam: GEN: Alert, oriented, hoarse/weak voice HEENT: Normal conjunctiva, sclera anicteric CV: Regular rate and rhythm, no edema Pulm: Non-labored respirations on room air, mild upper airway wheeze, with stridor on deep inspiration ABD: Soft, nontender, nondistended vitals reviewed Problem List: Laryngeal Mass, left; (~[id number]) Hypertension Elevated Troponin Patient seen and evaluated by ENT, Dr. Bowling recommended transfer to tertiary center for examination and biopsy/tracheotomy due to distal extension/involvement Transfer initiated, waiting for acceptance. Delayed due to weekend/holiday, inability to confirm insurance Will reach out to Dr. Bowling later today if no update on transfer Continue bronchodilators and IV steroid Troponin trended flat. Patient is asymptomatic. Cardiology consulted Echo: LVEF: 50%, mild mitral & tricuspid regurgitation Elevated troponin felt likely secondary to demand ischemia. Continue metoprolol, baby aspirin VTE: Lovenox Code: Full Dispo: pending transfer to [facility] Transfer initiated, waiting for acceptance
[2022-12-26 07:08] LABS: Absolute Lymphocytes (CBC) 0.9 K/uL (0.7-4.9); Hematocrit 35.1 % (39.6-49.0); Lymphocytes % 7.1 % (15.3-44.8); MCV 98.9 fL (80-100); MPV 8.8 fL (7.6-11.3); RBC Red Blood Cell Count 3.55 M/uL (4.33-5.43)
[2022-12-26 07:22] LABS: Potassium 4.5 mEq/L (3.5-5.1)
[2022-12-26] MEDS: ARFORMOTEROL TARTRATE 15 MCG/2 ML VIAL.NEB NEB SCH (07:57)
[2022-12-26] MEDS: ENOXAPARIN 40 MG/0.4 ML SQ SCH (08:46)
[2022-12-26] MEDS: METOPROLOL XL 25 MG TAB PO SCH (08:46)
[2022-12-26] MEDS: ASPIRIN 81 MG CHEWABLE TABLET PO SCH (08:46)
[2022-12-26 09:26] VITALS: O2SAT 100
--- NOTE | 2022-12-26 15:24 | P.DS ---
Admission Date: 12/23/22 Discharge Date: 12/26/22 Disposition: TRANSFER TO [facility] Reason for Admission: shortness of breath Procedures: CT Soft tissue -Neck (12/21/22): Ill-defined soft tissue mass is seen involving the left vocal cord/ glottis extending anteriorly. This approximately measures 42 x 24 x 12 mm. This abuts the left aspect of the thyroid cartilage hand appears to cross midline. Direct visualization is recommended. Salivary glands are normal in appearance. Normal size thyroid gland. Upper lung gutierrez are clear. Included intracranial contents are unremarkable. IMPRESSION: Poorly defined soft tissue mass is seen in the region of the left vocal cord/left glottic airway, approximately measuring CTA Chest (12/21/22): 1. No pulmonary embolic disease. Suboptimal evaluation of subsegmental pulmonary arteries in the lung bases secondary to respiratory motion artifact. 2. No focal consolidation. 3. Small nonobstructive bilateral renal stones. TTE (12/24/22): normal wall motion. normal LVEF: 50%, moderate aortic insufficiency, mild TR, mild MR, mild pulm insufficinecy. Prior hospitalization: [facility] (12/10/22) Findings: 1. Left main; large and normal. 2. LAD; proximal segment is normal. Mid segment 60% long lesion with negative FFR of 0.88. Then, the diagonal 2 branch has a stent that is occluded and the rest of the LAD appears normal. 3. Left circumflex; proximal segment is normal. OM branch has mid 40% stenosis and the left circumflex also in the body of it supplies the inferior wall has about 40% stenosis. Left circumflex is very large and dominant. 4. RCA; very small and nondominant with mid 70% stenosis, but it is very small vessel. Conclusion: Moderate coronary artery disease with the exception of the RCA, but it is nondominant vessel and small. Recommendation: Medical management. Brief History of Present Illness: 57yo M, PMH: HTN, CAD (s/p PCI 2016), nicotine dependence (quit 11/2022), recently discharged ~2 weeks ago for NSTEMI and bronchitis. Seen by Cardiology and Pulmonology at that time. Left heart cath with moderate stenosis, no PCI warranted. Presented to ED in late evening of 12/21 with 2-3 days of worsening shortness of breath, persistent hoarse / weak voice, coughing episodes, and feeling of phlegm stuck in his throat at times. He denied any chest pain. In the ED, labs were rather unremarkable with exception of elevated troponin and BNP (less than ~2 weeks ago). Chest x-ray and CTA negative for acute findings. Noted have some wheeze/stridor/work of breathing. Admitted for further evaluation. Hospital Course: Problem List: Laryngeal Mass, left; (~[id number]) Hypertension CAD (s/p PCI 2017 - 2nd diagonal branch of LAD) Hypertension h/o nicotine dependence (quit smoking 11/2022) Patient's dysphonia and intermittent shortness of breath has been ongoing for >3 weeks at this point. Chest x-ray and CT angiogram were negative for acute findings that would lead to his symptoms. Given his persistent dysphonia and noted stridor on this admission, a CT neck was performed and revealed a 4.2 x 2.4 x 1.2 cm soft tissue mass involving left vocal cord / glottis. Patient was started on IV decadron, 4mg q8h. ENT, Dr. Bowling, was consulted and evaluated the patient on 12/22. She was highly concerned for malignancy of glottis vs subglottis with significant narrowing of airway. She recommended transfer to tertiary care center due to location of the mass, felt tracheotomy may be high risk due to risk of cutting into the mass / bleeding into the airway, and possibly difficulty with placement / need for very low tracheostomy in order to bypass the mass. Due to logistics / holiday weekend, patient was waiting for transfer for 4 days. During this time, he remained stable on room air with occasional coughing episodes. He was monitored on telemetry without any arrhythmias. He received PRN albuterol nebs and brovana with improvement / resolution of cough. Shrotness of breath at rest improved, but he did remain with dyspnea on exertion, with noted stridor after exertion / deep breathing. With the exception of his early coughing episodes, his vital signs remained within normal limits and stable. He was accepted for transfer to [facility] on 12/26. Cardiology was consulted this admission. [place] troponin elevation was secondary to demand ischemia and not ACS. Recommended continue aspirin 81mg, beta-pillo, high-dose statin. Physical Exam: GEN: Alert, oriented, hoarse/weak voice HEENT: Normal conjunctiva, sclera anicteric CV: Regular rate and rhythm, no edema, III/ diastolic murmur Pulm: Non-labored respirations on room air at rest, clear to auscultation bilaterally with provoked stridor on deep breathing ABD: Soft, nontender, nondistended Vital Signs/Physical Exam: Temp Pulse Resp BP Pulse Ox 97.9 F 63 18 136/65 100 12/26/22 12:00 12/26/22 12:00 12/26/22 12:00 12/26/22 12:00 12/26/22 12:00 Laboratory Data at Discharge: WBC 13.40 thou/uL (4.3-10.9) H 12/26/22 07:00 Hgb 11.4 g/dL (13.6-17.9) L 12/26/22 07:00 Hct 35.1 % (39.6-49.0) L 12/26/22 07:00 Plt Count 227 thou/uL (152-406) 12/26/22 07:00 PT 10.7 SECONDS (9.5-12.5) 12/21/22 21:20 INR 0.97 12/21/22 21:20 D-Dimer 555 FEUng/mL (<500) H 12/21/22 21:20 Sodium 138 mEq/L (136-145) 12/26/22 07:00 Potassium 4.5 mEq/L (3.5-5.1) 12/26/22 07:00 BUN 14 mg/dL (7-18) 12/26/22 07:00 Creatinine 1.03 mg/dL (0.70-1.30) 12/26/22 07:00 Glucose 123 mg/dL (74-106) H 12/26/22 07:00 Magnesium 2.0 mg/dL (1.6-2.4) 12/26/22 07:00 Opiates Screen Negative (NEGATIVE) 12/22/22 01:30 Methadone Screen Negative (NEGATIVE) 12/22/22 01:30 Ur Barbiturates Screen Negative (NEGATIVE) 12/22/22 01:30 Ur Phencyclidine Scrn Negative (NEGATIVE) 12/22/22 01:30 Amphetamines Screen Negative (NEGATIVE) 12/22/22 01:30 Benzodiazepines Screen Negative (NEGATIVE) 12/22/22 01:30 Cocaine Screen Negative (NEGATIVE) 12/22/22 01:30 Ur THC Screen Negative (NEGATIVE) 12/22/22 01:30 SARS-CoV-2 Ag (Rapid) Negative (Negative) 12/21/22 21:15 Home Medications: Atorvastatin Calcium [Lipitor] 40 mg PO DAILY 12/09/22 Metoprolol Succinate 25 mg PO DAILY 12/09/22 Physician Discharge Instructions: Patient presented with shortness of breath. CT neck revealed a soft tissue mass is seen in the region of the left vocal cord/left glottic airway, approximately measuring 4 x 2 x 1 cm, highly concerning for malignancy. Dr Bowling (ENT) was consulted. Due to the location of the tumor, tracheotomy may be high risk due to risk of cutting in to the tumor, bleeding into the airway and difficulty with placement/need for very low tracheotomy in order to bypass tumor. Recommended for transfer to high level of care with tertiary care team. Followup: OOT,OOT [Primary Care Provider] - Time spent managing pt's care (in minutes): 45
[2022-12-26 16:32] VITALS: BP 136/68; TEMP 97.8
== END 2022-12-26 18:16 | disposition short-term general hospital (02) | DRG 155 ==
LOC: ER 20:36 → ERHOLD 12-22 01:16 → 2ND 12-22 01:22 → OBSVTOIN 12-23 16:50
PROVIDERS: ADMIT Internal Medicine Sleep Medicine; ATTEND Hospitalist
DX: J38.7 Other diseases of larynx (principal); I24.8 Other forms of acute ischemic heart disease; I25.110 Atherosclerotic heart disease of native coronary artery with unstable angina pectoris; J44.9 Chronic obstructive pulmonary disease, unspecified; I49.3 Ventricular premature depolarization; I10 Essential (primary) hypertension; I25.2 Old myocardial infarction; Z95.5 Presence of coronary angioplasty implant and graft; Z79.82 Long term (current) use of aspirin; Z79.52 Long term (current) use of systemic steroids; Z79.899 Other long term (current) drug therapy; Z28.310 Unvaccinated for COVID-19; Z87.891 Personal history of nicotine dependence; Z20.822 Contact with and (suspected) exposure to COVID-19
CPT/HCPCS: 36415; 70491; 71045; 71275; 80048; 80307; 83735; 83880; 84484; 85025; 85379; 85610; 87804; 87811; 93005; 93306; 94640; 94760; 96374; 99285; G0378; J1100; J1650; J2930; J3475; J7512; J7605; J7613; J7644; Q9967